=== PATIENT | male | born 1930 | race Two or more races ===

== ENCOUNTER 2017-07-02 16:44 | Inpatient (IN) | payer MEDICARE, BC ==
[~2017-07-02] VITALS: Ht 157.5 cm; Wt 75.7 kg
[~2017-07-02 16:44] MED LIST: DILAUDID1 MG/1 ML PO; LISINOPRIL2.5 MG ORAL
[2017-07-02 16:50] VITALS: BP 137/82
[2017-07-02 17:31] LABS: TROPONIN I < 0.30 ng/mL (<=0.30)
[2017-07-02 17:32] LABS: MEAN CORPUSCULAR HEMOGLOBIN 36.8 PG (27.0-31.0); MEAN CORPUSCULAR HGB CONC 36.4 G/DL (32.0-36.0); MEAN CORPUSCULAR VOLUME 101 FL (80-99); MEAN PLATELET VOLUME 9.9 FL (6.5-10.1); PLATELET COUNT 82 K/UL (150-450); RED BLOOD COUNT 3.57 M/UL (4.70-6.10); RED CELL DISTRIBUTION WIDTH 12.9 % (11.6-14.8); WHITE BLOOD COUNT 7.1 K/UL (4.8-10.8)
[2017-07-02 17:34] LABS: ALANINE AMINOTRANSFERASE 16 U/L (3-41); ALBUMIN/GLOBULIN RATIO 1.5 (1.0-2.7); ANION GAP 11 (5-15); ASPARTATE AMINO TRANSFERASE 31 U/L (5-40); CALCIUM 9.1 mg/dL (8.6-10.2); CARBON DIOXIDE 28 mEQ/L (20-30); CHLORIDE 102 mEQ/L (98-107); CREATININE 0.9 mg/dL (0.7-1.2); HEMOLYSIS 32; SODIUM 141 mEQ/L (135-145); TOTAL PROTEIN 6.7 g/dL (6.6-8.7)
[2017-07-02 17:45] LABS: CKMB 4.7 ng/mL (< 6.7)
[2017-07-02 18:37] VITALS: BP 126/63
[2017-07-02] MEDS ORDERED: HYDROmorphone 1mg/ml Carpuject IVP ONE (18:45)
--- NOTE | 2017-07-02 18:56 | Emergency Room Report ---
History of Present Illness General Chief Complaint: Chest Pain Source: Patient, EMS Present Illness HPI 86YOM BIBEMS for chest pain "all day." Thinks he "woke up with it." Right sided, sharp, non-radiating No assoc fever/chills, cough, SOB, abd pain, nausea Endorses pacer placed and "right heart valve replaced at [facility] last month" because he had CHF On ASA and Shady Went to PMD's office who sent him to ED Got 2x ASA by EMS today as well Still c/o pain Requesting IV dialudid for "chronic abd pain" - used to have dilaudid pump. Allergies: Coded Allergies: No Known Allergies (Unverified , 07/02/17) Patient History Past Medical History: CHF Past Surgical History: pacemaker, other - "heart valve replaced on right side" Pertinent Family History: none Social History: Denies: smoking, alcohol use, drug use Immunizations: UTD Reviewed Nursing Documentation: PMH: Agreed, PSxH: Agreed Nursing Documentation-PMH Past Medical History: No History, Except For Hx Cardiac Problems: Yes Hx Hypertension: Yes Review of Systems All Other Systems: negative except mentioned in HPI Physical Exam Vital Signs Date Time Temp Pulse Resp B/P (MAP) Pulse Ox O2 Delivery O2 Flow Rate FiO2 07/02/17 16:38 98.2 77 16 150/96 100 Room Air Sp02 EP Interpretation: reviewed, normal General Appearance: normal inspection, well appearing, no apparent distress, alert, GCS 15, non-toxic Head: normocephalic, atraumatic Eyes: bilateral eye PERRL, bilateral eye EOMI ENT: normal ENT inspection, hearing grossly normal, normal voice Neck: normal inspection, full range of motion, supple, no bony tend Respiratory: normal inspection, lungs clear, normal breath sounds, no respiratory distress, no retraction, no wheezing, other - No pocket infection at pacemaker site visualized or palpated, chest symmetrical, palpation of chest normal Cardiovascular #1: regular rate, rhythm, no edema Gastrointestinal: normal inspection, normal bowel sounds, non tender, soft, no guarding, no hernia Genitourinary: no CVA tenderness Musculoskeletal: normal inspection, back normal, normal range of motion, Yasmeen' s Sign negative Neurologic: normal inspection, alert, oriented x3, responsive, embedded nurse III-XII nml as tested, motor strength/tone normal, speech normal Psychiatric: normal inspection, judgement/insight normal, mood/affect normal Skin: normal inspection, normal color, no rash Lymphatic: normal inspection Medical Decision Making Medicare Attestation I Gilberto Pro MD hereby attest that the medical record entry for date of service, 07/02/17 accurately reflects signatures/notations that I made in my capacity as MD when I treated/diagnosed the above listed Medicare beneficiary. I attest that this information is true, accurate and complete to the best of my knowledge. I understand that any falsification, omission, or concealment of material fact may subject me to administrative, civil, or criminal liability. This patient warrants hospital admission for extreme of age and has a condition that cannot be treated as outpatient. Diagnostic Impression: Primary Impression: Chest pain Qualified Codes: R07.9 - Chest pain, unspecified ER Course 86 YOM with PMHx of CHF, recent pacer placed, valve replaced DDX: ACS vs. CHF vs. pneumonia vs. gastritis/GERD vs. pneumothorax PE on differential however at this time there are other more likely diagnoses. Plan: IV access, obtain labs including troponin, EKG, CXR ASA already given, pain control with nitro / morphine Tele admission to Dr Shipley at 7pm Chest pain admission * ER course: Pain was treated with dilaudid Labs unremarkable. Troponin 0 EKG reveals no acute STT changes. Atrial sensed, ventricular paced CXR: no acute cardiopulmonary disease. Pacer visualized Patient has remained on a monitor, HD stable, chest pain improved. Disposition: Patient requires admission for chest pain. EKG Diagnostic Results Rate: other - Atrial sensed, v-paced ST Segments: no acute changes ASA given to the pt in ED: No Rhythm Strip Diag. Results EP Interpretation: yes Rate: 83 Rhythm: NSR, other - Multiple PVCs Chest X-Ray Diagnostic Results Chest X-Ray Diagnostic Results : Chest X-Ray Ordered: Yes # of Views/Limited/Complete: 1 View Indication: Chest Pain EP Interpretation: Yes Interpretation: no consolidation, no pneumothorax, other - Cardiomegaly, pacemaker Interpreting ER Provider: Dr Gilberto Pro MD Last Vital Signs Date Time Temp Pulse Resp B/P (MAP) Pulse Ox O2 Delivery O2 Flow Rate FiO2 07/02/17 18:37 80 17 126/63 97 Room Air 07/02/17 16:50 97.8 Status: improved Disposition: ADMITTED INPATIENT Condition: Serious Referrals: NOT CHOSEN SARITA/,REFERRING (PCP) GILBERTO PRO M.D. Jul 02, 2017 18:56
[2017-07-02 19:02] LABS: ANISOCYTOSIS 1+; BAND NEUTROPHILS % (MANUAL) 2 % (0-8); EOSINOPHILS % (MANUAL) 3 % (0-3); LYMPHOCYTES % (MANUAL) 35 % (20-45); MACROCYTES 1+; NEUTROPHILS % (MANUAL) 54 % (45-75); TOTAL CELLS COUNTED 100
[2017-07-02 19:03] LABS: BASOPHILS % (MANUAL) 0 % (0-2); PLATELET ESTIMATE DECREASED; PLATELET MORPHOLOGY NORMAL
[2017-07-02] MEDS ORDERED: Diltiazem 25mg/5ml IV PRN (19:15)
[2017-07-02] MEDS ORDERED: Ketorolac 30mg Inj IV PRN (19:15)
[2017-07-02] MEDS ORDERED: Enalaprilat 2.5mg/2ml Inj IV PRN (19:15)
[2017-07-02] MEDS ORDERED: DuoNeb 0.5-3(2.5)mg/3ml neb HHN PRN (19:15)
[2017-07-02] MEDS ORDERED: Miralax 17gm pkt ORAL PRN (19:15)
[2017-07-02] MEDS ORDERED: Nitroglycerin Subl 0.4mg tab (Bottle Of 25) SL PRN (19:15)
[2017-07-02 19:27] VITALS: BP 126/65
[2017-07-02 20:00] VITALS: BP 133/74
[2017-07-02 20:54] LABS: TROPONIN I < 0.30 ng/mL (<=0.30)
[2017-07-02] MEDS ORDERED: Heparin 5000 units/ml inj SUBQ SCH (21:00)
[2017-07-02] MEDS: Morphine Sulfate 2mg/ml Inj IVP PRN (22:11)
[2017-07-03] VITALS (12 sets, daily range): BP systolic 73–124; BP diastolic 39–76
[2017-07-03] MEDS ORDERED: OXYCODONE-ACET1 EAC3 ORAL (00:02)
[2017-07-03] MEDS ORDERED: GABAPENTIN100 MG ORAL (00:02)
[2017-07-03] MEDS ORDERED: SYNTHROID50 MCG ORAL (00:02)
[2017-07-03] MEDS ORDERED: LACTULOSE10 GM/153 PO (00:02)
[2017-07-03] MEDS ORDERED: OMEPRAZOLE40 M1 ORAL (00:02)
[2017-07-03] MEDS ORDERED: MOVANTIK25 MG PO (00:02)
[2017-07-03] MEDS ORDERED: FLOMAX0.4 MG ORAL (00:02)
[2017-07-03] MEDS ORDERED: TRAMADOL HCL50 MG ORAL (00:02)
[2017-07-03] MEDS ORDERED: PRINIVIL10 MG ORAL (00:02)
[2017-07-03] MEDS ORDERED: ASPIR 8181 MG ORAL (00:02)
[2017-07-03] MEDS ORDERED: DOCUSATE SODIU100 M2 ORAL (00:02)
[2017-07-03] MEDS ORDERED: FINASTERIDE5 MG ORAL (00:02)
[2017-07-03] MEDS ORDERED: SIMVASTATIN40 MG ORAL (00:02)
[2017-07-03] MEDS ORDERED: IPRATROPIUM BRO15 ML NS (00:02)
[2017-07-03] MEDS ORDERED: LOPRESSOR25 M1 ORAL (00:02)
[2017-07-03 06:46] LABS: MEAN CORPUSCULAR HEMOGLOBIN 34.7 PG (27.0-31.0); MEAN CORPUSCULAR HGB CONC 33.5 G/DL (32.0-36.0); MEAN CORPUSCULAR VOLUME 103 FL (80-99); PLATELET COUNT 88 K/UL (150-450); RED BLOOD COUNT 3.66 M/UL (4.70-6.10); RED CELL DISTRIBUTION WIDTH 12.8 % (11.6-14.8); WHITE BLOOD COUNT 5.7 K/UL (4.8-10.8)
[2017-07-03 06:51] LABS: INR 1.1 (0.9-1.1); PROTHROMBIN TIME 11.2 SEC (9.30-11.50)
[2017-07-03 06:58] LABS: CHOLESTEROL 122 mg/dL (< 200); CRP QUANT < 0.3 mg/dL (< 0.5); HEMOLYSIS 8; LDL CHOLESTEROL (CALC.) 51 mg/dL (60-99)
[2017-07-03] MEDS ORDERED: traMADol 50mg tab ORAL PRN (07:00)
[2017-07-03] MEDS ORDERED: oxyCODONE HCL/Acetaminophen 5/325mg ORAL PRN (07:00)
[2017-07-03 07:50] LABS: TROPONIN I < 0.30 ng/mL (<=0.30)
[2017-07-03 08:14] LABS: EOSINOPHILS % (MANUAL) 4 % (0-3); LYMPHOCYTES % (MANUAL) 34 % (20-45); NEUTROPHILS % (MANUAL) 57 % (45-75); TOTAL CELLS COUNTED 100
[2017-07-03 08:15] LABS: BAND NEUTROPHILS % (MANUAL) 0 % (0-8); BASOPHILS % (MANUAL) 0 % (0-2); PLATELET ESTIMATE DECREASED; PLATELET MORPHOLOGY NORMAL
[2017-07-03 08:16] LABS: MACROCYTES 1+
[2017-07-03] MEDS: Morphine Sulfate 2mg/ml Inj IVP PRN ×2 (08:52→20:30)
[2017-07-03] MEDS: Aspirin Baby 81mg ORAL SCH ×2 (08:59→09:00)
[2017-07-03] MEDS ORDERED: Metoprolol 25mg tab ORAL SCH (09:00)
[2017-07-03] MEDS ORDERED: Lisinopril 10mg tab ORAL SCH (09:00)
[2017-07-03] MEDS: Tamsulosin 0.4mg cap ORAL SCH ×2 (09:00→18:11)
--- NOTE | 2017-07-03 09:49 | Cardiology Progress Note ---
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 thrombus on valve on anticoag chf chronic thrombocytopenia 77-109 evlautecd by tutu at [facility] 05/2017 contineu on antiplt an anitcoag chronic pain pudendal neuralgia abd pain constipation , chest pain nto cardiac ischmeic in orgin has had even previoulsy all trop neg as expected as no cad normal coroanries is on anticoagualtion to continue pain has resolved was supposed to be seen by gi his pmd is dr pruitt and he saw him yest gi was dr kerns [id number] Objective Last 24 Hour Vital Signs Date Time Temp Pulse Resp B/P (MAP) Pulse Ox O2 Delivery O2 Flow Rate FiO2 07/03/17 09:00 82 124/69 07/03/17 09:00 124/69 07/03/17 08:13 98.1 82 20 124/69 96 Room Air 07/03/17 04:00 97.0 72 20 112/56 98 Room Air 72 07/03/17 04:00 67 07/03/17 00:00 67 07/03/17 00:00 97.3 66 20 107/63 95 07/02/17 20:00 97.0 78 20 133/74 96 Room Air 07/02/17 19:45 97.9 79 20 126/65 98 Room Air 07/02/17 19:27 97.9 79 20 126/65 98 Room Air 07/02/17 18:37 80 17 126/63 97 Room Air 07/02/17 16:50 97.8 79 22 137/82 98 Room Air 07/02/17 16:50 79 22 Room Air 07/02/17 16:38 98.2 77 16 150/96 100 Room Air Laboratory Tests Test 07/02/17 17:05 07/02/17 20:15 07/03/17 06:15 White Blood Count 7.1 K/UL (4.8-10.8) 5.7 K/UL (4.8-10.8) Red Blood Count 3.57 M/UL (4.70-6.10) L 3.66 M/UL (4.70-6.10) L Hemoglobin 13.1 G/DL (14.2-18.0) L 12.7 G/DL (14.2-18.0) L Hematocrit 36.0 % (42.0-52.0) L 37.8 % (42.0-52.0) L Mean Corpuscular Volume 101 FL (80-99) H 103 FL (80-99) H Mean Corpuscular Hemoglobin 36.8 PG (27.0-31.0) H 34.7 PG (27.0-31.0) H Mean Corpuscular Hemoglobin Concent 36.4 G/DL (32.0-36.0) H 33.5 G/DL (32.0-36.0) Red Cell Distribution Width 12.9 % (11.6-14.8) 12.8 % (11.6-14.8) Platelet Count 82 K/UL (150-450) L 88 K/UL (150-450) L Mean Platelet Volume 9.9 FL (6.5-10.1) 9.0 FL (6.5-10.1) Neutrophils (%) (Auto) % (45.0-75.0) % (45.0-75.0) Lymphocytes (%) (Auto) % (20.0-45.0) % (20.0-45.0) Monocytes (%) (Auto) % (1.0-10.0) % (1.0-10.0) Eosinophils (%) (Auto) % (0.0-3.0) % (0.0-3.0) Basophils (%) (Auto) % (0.0-2.0) % (0.0-2.0) Differential Total Cells Counted 100 100 Neutrophils % (Manual) 54 % (45-75) 57 % (45-75) Lymphocytes % (Manual) 35 % (20-45) 34 % (20-45) Monocytes % (Manual) 6 % (1-10) 5 % (1-10) Eosinophils % (Manual) 3 % (0-3) 4 % (0-3) H Basophils % (Manual) 0 % (0-2) 0 % (0-2) Band Neutrophils 2 % (0-8) 0 % (0-8) Platelet Estimate Decreased L Decreased L Platelet Morphology Normal Normal Anisocytosis 1+ Macrocytosis 1+ 1+ Sodium Level 141 mEQ/L (135-145) Potassium Level 4.0 mEQ/L (3.4-4.9) Chloride Level 102 mEQ/L (98-107) Carbon Dioxide Level 28 mEQ/L (20-30) Anion Gap 11 (5-15) Blood Urea Nitrogen 23 mg/dL (7-23) Creatinine 0.9 mg/dL (0.7-1.2) Estimat Glomerular Filtration Rate mL/min (>60) Glucose Level 126 mg/dL (74-106) H Calcium Level 9.1 mg/dL (8.6-10.2) Total Bilirubin 0.3 mg/dL (0.0-1.2) Aspartate Amino Transf (AST/SGOT) 31 U/L (5-40) Alanine Aminotransferase (ALT/SGPT) 16 U/L (3-41) Alkaline Phosphatase 91 U/L (40-129) Total Creatine Kinase 87 U/L (38-174) Creatine Kinase MB 4.7 ng/mL (< 6.7) Creatine Kinase MB Relative Index 5.4 Troponin I < 0.30 ng/mL (<=0.30) < 0.30 ng/mL (<=0.30) < 0.30 ng/mL (<=0.30) Total Protein 6.7 g/dL (6.6-8.7) Albumin 4.1 g/dL (3.5-5.2) Globulin 2.6 g/dL Albumin/Globulin Ratio 1.5 (1.0-2.7) Prothrombin Time 11.2 SEC (9.30-11.50) Prothromb Time International Ratio 1.1 (0.9-1.1) Activated Partial Thromboplast Time 32 SEC (23-33) C-Reactive Protein, Quantitative < 0.3 mg/dL (< 0.5) Triglycerides Level 52 mg/dL (< 150) Cholesterol Level 122 mg/dL (< 200) LDL Cholesterol 51 mg/dL (60-99) L HDL Cholesterol 61 mg/dL (> 60) H Cholesterol/HDL Ratio 2.0 (3.3-4.4) L Thyroid Stimulating Hormone (TSH) 1.850 uIU/mL (0.300-4.500) RAE ELLIS Jul 03, 2017 09:49
--- NOTE | 2017-07-03 12:22 | Diagnostic Imaging Report ---
Indication: Chest pain Comparison: None A single view chest radiograph was obtained. Findings: Heart is enlarged. There is a pacemaker on the left. Aorta is calcified. There is paravertebral prominence at the lower thoracic spine. Suggest further evaluation. This could be hiatal hernia. Other possibilities are not excluded. No obvious infiltrate or pulmonary edema identified. The bones are osteopenic. Cervical fusion hardware noted. Impression: Apparent paravertebral prominence lower aspect of the thoracic spine. Consider CT for further evaluation. No acute cardiopulmonary disease identified
--- NOTE | 2017-07-03 12:39 | GI Initial Consult Note ---
AlfredaJelena Flaherty N.P. 07/03/17 1239: History of Present Illness General Date patient seen: Jul 03, 2017 Time patient seen: 11:00 Reason for Hospitalization: Chest Pain Referring physician: SHELLY BROCK Reason for Consultation: ABDOMINAL PAIN Present Illness HPI 86YOM BIBEMS for chest pain "all day." Thinks he "woke up with it." Right sided, sharp, non-radiating No assoc fever/chills, cough, SOB, abd pain, nausea Endorses pacer placed and "right heart valve replaced at [facility] last month" because he had CHF On ASA and Shady Went to PMD's office who sent him to ED Got 2x ASA by EMS today as well Still c/o pain Requesting IV dialudid for "chronic abd pain" - used to have dilaudid pump. GI Consult. HPI as noted above. GI consulted for abdominal pain. Patient seen on floor, awake A&Ox4 NAD with no active s/sx of N/V/D. Patient c/o of generalized pain directed to his chest and abdomen. In addition, patient c/o of constipation, stated his last BM was yesterday. Per patient, last endoscopy and/or colonoscopy was 5+ years ago. He presents today with mild anemia and negative troponin levels. Home Meds Reported Medications Tramadol Hcl* (ULTRAM*) 50 Mg Tablet, 50 MG ORAL Q4HR Y for For Pain, #30 TAB 0 Refills 07/03/17 Oxycodone Hcl/Acetaminophen 5-325* (OXYCODONE-ACETAMINOPHEN 5-325*) 1 Each Tablet, 1 TAB ORAL Q4H Y for For Pain, TAB 0 Refills 07/03/17 Tamsulosin HCl (Flomax) 0.4 Mg Cap.er.24h, 0.4 MG ORAL BID, CAP 07/03/17 Simvastatin (ZOCOR) 40 Mg Tablet, 40 MG ORAL BEDTIME, TAB 07/03/17 Omeprazole (OMEPRAZOLE) 40 Mg Capsule.dr, 40 MG ORAL BEFORE LUNCH, CAP 07/03/17 Metoprolol Tartrate (Metoprolol Tartrate) 25 Mg Tablet, 25 MG ORAL EVERY 12 HOURS, TAB 07/03/17 Lisinopril* (PRINIVIL*) 10 Mg Tablet, 10 MG ORAL DAILY, TAB 07/03/17 Levothyroxine Sodium (Synthroid) 50 Mcg Tablet, 50 MCG ORAL ACBREAKFAST, TAB Take in the morning on an empty stomach, at least 30 minutes beforefood. 07/03/17 Aspirin* (ASPIR 81*) 81 Mg Tablet.dr, 81 MG ORAL QHS, TAB 07/03/17 Naloxegol Oxalate (Movantik) 25 Mg Tablet, 25 MG PO DAILY, TAB 07/03/17 Lactulose (LACTULOSE) 10 Gm/15 Ml Solution, 10 GM PO QID 07/03/17 Ipratropium [place] (IPRATROPIUM BROMIDE) 15 Ml [place], 0.03 % NS DAILY, #1 SPRAY 07/03/17 Gabapentin* (GABAPENTIN*) 100 Mg Capsule, 100 MG ORAL QHS, CAP 07/03/17 Finasteride (FINASTERIDE) 5 Mg Tablet, 5 MG ORAL DAILY, #30 TAB 0 Refills 07/03/17 Docusate Sodium (DOCUSATE SODIUM) 100 Mg Tablet, 100 MG ORAL QID, #60 TAB 0 Refills 07/03/17 Hydromorphone Hcl (DILAUDID) 1 Mg/1 Ml Liquid, PO, ML 07/02/17 Lisinopril* (LISINOPRIL*) 2.5 Mg Tablet, ORAL DAILY, TAB 0 Refills 07/02/17 Med list reviewed/reconciled: Yes Allergies: Coded Allergies: No Known Allergies (Unverified , 07/02/17) Patient History History Provided By: Patient, Medical Record PMH Narrative Past Medical History: CHF Past Surgical History: pacemaker, other - "heart valve replaced on right side" Pertinent Family History: none Social History: Denies: smoking, alcohol use, drug use Immunizations: UTD Reviewed Nursing Documentation: PMH: Agreed, PSxH: Agreed Nursing Documentation-PM Past Medical History: No History, Except For Hx Cardiac Problems: Yes Hx Hypertension: Yes Social History: Denies: smoking, alcohol use, drug use, other Review of Systems All Other Systems: negative except mentioned in HPI Physical Exam Vital Signs Date Time Temp Pulse Resp B/P (MAP) Pulse Ox O2 Delivery O2 Flow Rate FiO2 07/02/17 16:38 98.2 77 16 150/96 100 Room Air 07/03/17 08:04 21 Sp02 EP Interpretation: reviewed Labs Laboratory Tests Test 07/02/17 17:05 07/02/17 20:15 07/03/17 06:15 White Blood Count 7.1 K/UL (4.8-10.8) 5.7 K/UL (4.8-10.8) Red Blood Count 3.57 M/UL (4.70-6.10) L 3.66 M/UL (4.70-6.10) L Hemoglobin 13.1 G/DL (14.2-18.0) L 12.7 G/DL (14.2-18.0) L Hematocrit 36.0 % (42.0-52.0) L 37.8 % (42.0-52.0) L Mean Corpuscular Volume 101 FL (80-99) H 103 FL (80-99) H Mean Corpuscular Hemoglobin 36.8 PG (27.0-31.0) H 34.7 PG (27.0-31.0) H Mean Corpuscular Hemoglobin Concent 36.4 G/DL (32.0-36.0) H 33.5 G/DL (32.0-36.0) Red Cell Distribution Width 12.9 % (11.6-14.8) 12.8 % (11.6-14.8) Platelet Count 82 K/UL (150-450) L 88 K/UL (150-450) L Mean Platelet Volume 9.9 FL (6.5-10.1) 9.0 FL (6.5-10.1) Neutrophils (%) (Auto) % (45.0-75.0) % (45.0-75.0) Lymphocytes (%) (Auto) % (20.0-45.0) % (20.0-45.0) Monocytes (%) (Auto) % (1.0-10.0) % (1.0-10.0) Eosinophils (%) (Auto) % (0.0-3.0) % (0.0-3.0) Basophils (%) (Auto) % (0.0-2.0) % (0.0-2.0) Differential Total Cells Counted 100 100 Neutrophils % (Manual) 54 % (45-75) 57 % (45-75) Lymphocytes % (Manual) 35 % (20-45) 34 % (20-45) Monocytes % (Manual) 6 % (1-10) 5 % (1-10) Eosinophils % (Manual) 3 % (0-3) 4 % (0-3) H Basophils % (Manual) 0 % (0-2) 0 % (0-2) Band Neutrophils 2 % (0-8) 0 % (0-8) Platelet Estimate Decreased L Decreased L Platelet Morphology Normal Normal Anisocytosis 1+ Macrocytosis 1+ 1+ Sodium Level 141 mEQ/L (135-145) Potassium Level 4.0 mEQ/L (3.4-4.9) Chloride Level 102 mEQ/L (98-107) Carbon Dioxide Level 28 mEQ/L (20-30) Anion Gap 11 (5-15) Blood Urea Nitrogen 23 mg/dL (7-23) Creatinine 0.9 mg/dL (0.7-1.2) Estimat Glomerular Filtration Rate mL/min (>60) Glucose Level 126 mg/dL (74-106) H Calcium Level 9.1 mg/dL (8.6-10.2) Total Bilirubin 0.3 mg/dL (0.0-1.2) Aspartate Amino Transf (AST/SGOT) 31 U/L (5-40) Alanine Aminotransferase (ALT/SGPT) 16 U/L (3-41) Alkaline Phosphatase 91 U/L (40-129) Total Creatine Kinase 87 U/L (38-174) Creatine Kinase MB 4.7 ng/mL (< 6.7) Creatine Kinase MB Relative Index 5.4 Troponin I < 0.30 ng/mL (<=0.30) < 0.30 ng/mL (<=0.30) < 0.30 ng/mL (<=0.30) Total Protein 6.7 g/dL (6.6-8.7) Albumin 4.1 g/dL (3.5-5.2) Globulin 2.6 g/dL Albumin/Globulin Ratio 1.5 (1.0-2.7) Prothrombin Time 11.2 SEC (9.30-11.50) Prothromb Time International Ratio 1.1 (0.9-1.1) Activated Partial Thromboplast Time 32 SEC (23-33) C-Reactive Protein, Quantitative < 0.3 mg/dL (< 0.5) Triglycerides Level 52 mg/dL (< 150) Cholesterol Level 122 mg/dL (< 200) LDL Cholesterol 51 mg/dL (60-99) L HDL Cholesterol 61 mg/dL (> 60) H Cholesterol/HDL Ratio 2.0 (3.3-4.4) L Thyroid Stimulating Hormone (TSH) 1.850 uIU/mL (0.300-4.500) General Appearance: well appearing, no apparent distress, alert Head: normocephalic EENT: PERRL/EOMI, normal ENT inspection Neck: supple Respiratory: normal breath sounds, no respiratory distress Cardiovascular: normal rate Gastrointestinal: normal inspection, non tender, soft, normal bowel sounds Genitourinary: normal inspection, no CVA tenderness, no vertebral tenderness Musculoskeletal: normal inspection, back normal Neurologic: normal inspection, alert, oriented x3, responsive Psychiatric: normal inspection, judgement/insight normal Skin: normal inspection, normal color, no rash, warm/dry Lymphatic: normal inspection, no adenopathy Current Medications Current Medications Medications (Trade) Dose Ordered Sig/Michael Route PRN Reason Start Time Stop Time Status Last Admin Dose Admin Acetaminophen (Tylenol) 650 mg Q4H PRN ORAL FEVER 07/02/17 19:15 08/01/17 19:14 Albuterol/ Ipratropium (DuoNeb 0.5-3(2.5)mg/3ml) 3 ml Q4H PRN HHN Shortness of Breath 07/02/17 19:15 07/07/17 19:14 Aspirin (ASA) 162 mg DAILY ORAL 07/03/17 09:00 08/02/17 08:59 Diltiazem HCl (Cardizem) 10 mg Q1H PRN IV heart rate more than 120, 07/02/17 19:15 08/01/17 19:14 Enalaprilat (Vasotec) 2.5 mg Q6H PRN IV sbp more than 160 07/02/17 19:15 08/01/17 19:14 Finasteride (Proscar) 5 mg DAILY ORAL 07/03/17 09:00 08/02/17 08:59 07/03/17 08:59 Levothyroxine Sodium (Synthroid) 50 mcg ACBREAKFAST ORAL 07/04/17 06:30 08/03/17 06:29 Lisinopril (Zestril) 10 mg DAILY ORAL 07/03/17 09:00 08/02/17 08:59 07/03/17 09:00 Metoprolol Tartrate (Lopressor) 25 mg EVERY 12 HOURS ORAL 07/03/17 09:00 08/02/17 08:59 07/03/17 09:00 Morphine Sulfate (Morphine Sulfate) 2 mg Q4H PRN IVP severe Pain (Pain Scale 7-10) 07/02/17 19:15 07/09/17 19:14 07/03/17 08:52 Nitroglycerin (Ntg) 0.4 mg Q5M PRN SL Prn Chest Pain 07/02/17 19:15 08/01/17 19:14 Ondansetron HCl (Zofran) 4 mg Q6H PRN IVP Nausea & Vomiting 07/02/17 19:15 08/01/17 19:14 07/03/17 09:06 Oxycodone/ Acetaminophen (Percocet 5-325) 1 tab Q4H PRN ORAL for moderate pain 07/03/17 07:00 07/10/17 06:59 Pantoprazole (Protonix) 40 mg DAILY ORAL 07/03/17 09:00 08/02/17 08:59 07/03/17 08:59 Polyethylene Glycol (Miralax) 17 gm DAILYPRN PRN ORAL Constipation 07/02/17 19:15 08/01/17 19:14 07/02/17 22:09 Tamsulosin HCl (Flomax) 0.4 mg BID ORAL 07/03/17 09:00 08/02/17 08:59 07/03/17 09:00 Temazepam (Restoril) 15 mg HSPRN PRN ORAL Insomnia 07/02/17 19:15 07/09/17 19:14 Tramadol HCl (Ultram) 50 mg Q4HR PRN ORAL for mild pain 07/03/17 07:00 07/10/17 06:59 GI: Plan Problems: (1) Anemia (2) Constipation Plan symptomatic treatment given advanced age >> pt refused any GI procedures macrocytic, hyperchromic anemia >> ordered B12/folate levels OB stool r/o GI bleed bowel regime >> colace + miralax, add lactulose if necessary monitor H&H, prn transfusions electrolyte replacement ppi fu labs Discussed with Dr. Butler. Thank you for referring this patient, we will follow. LONNY BUTLER 07/04/17 0637: History of Present Illness General Reason for Hospitalization: Chest Pain Present Illness Home Meds Reported Medications Tramadol Hcl* (ULTRAM*) 50 Mg Tablet, 50 MG ORAL Q4HR Y for For Pain, #30 TAB 0 Refills 07/03/17 Oxycodone Hcl/Acetaminophen 5-325* (OXYCODONE-ACETAMINOPHEN 5-325*) 1 Each Tablet, 1 TAB ORAL Q4H Y for For Pain, TAB 0 Refills 07/03/17 Tamsulosin HCl (Flomax) 0.4 Mg Cap.er.24h, 0.4 MG ORAL BID, CAP 07/03/17 Simvastatin (ZOCOR) 40 Mg Tablet, 40 MG ORAL BEDTIME, TAB 07/03/17 Omeprazole (OMEPRAZOLE) 40 Mg Capsule.dr, 40 MG ORAL BEFORE LUNCH, CAP 07/03/17 Metoprolol Tartrate (Metoprolol Tartrate) 25 Mg Tablet, 25 MG ORAL EVERY 12 HOURS, TAB 07/03/17 Lisinopril* (PRINIVIL*) 10 Mg Tablet, 10 MG ORAL DAILY, TAB 07/03/17 Levothyroxine Sodium (Synthroid) 50 Mcg Tablet, 50 MCG ORAL ACBREAKFAST, TAB Take in the morning on an empty stomach, at least 30 minutes beforefood. 07/03/17 Aspirin* (ASPIR 81*) 81 Mg Tablet.dr, 81 MG ORAL QHS, TAB 07/03/17 Naloxegol Oxalate (Movantik) 25 Mg Tablet, 25 MG PO DAILY, TAB 07/03/17 Lactulose (LACTULOSE) 10 Gm/15 Ml Solution, 10 GM PO QID 07/03/17 Ipratropium [place] (IPRATROPIUM BROMIDE) 15 Ml [place], 0.03 % NS DAILY, #1 SPRAY 07/03/17 Gabapentin* (GABAPENTIN*) 100 Mg Capsule, 100 MG ORAL QHS, CAP 07/03/17 Finasteride (FINASTERIDE) 5 Mg Tablet, 5 MG ORAL DAILY, #30 TAB 0 Refills 07/03/17 Docusate Sodium (DOCUSATE SODIUM) 100 Mg Tablet, 100 MG ORAL QID, #60 TAB 0 Refills 07/03/17 Hydromorphone Hcl (DILAUDID) 1 Mg/1 Ml Liquid, PO, ML 07/02/17 Lisinopril* (LISINOPRIL*) 2.5 Mg Tablet, ORAL DAILY, TAB 0 Refills 07/02/17 Allergies: Coded Allergies: No Known Allergies (Unverified , 07/02/17) GI: Plan Plan The patient was seen and examined at bedside and all new and available data was reviewed in the patients chart. I agree with the above findings, impression and plan. (Patient seen earlier today. Signature stamp does not reflect patient encounter time.). -Lonny GantB[facility] Reynold N.PZoey Jul 03, 2017 12:39 LONNY BUTLER Jul 04, 2017 06:37
[2017-07-03] MEDS: Docusate 100mg cap ORAL SCH ×2 (13:36→18:11)
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
--- NOTE | 2017-07-03 13:42 | Cardiology Report ---
APPROVED REPORT EXAM: Two-dimensional and M-mode echocardiogram with Doppler and color Doppler. INDICATION Left ventricular function M-Mode DIMENSIONS IVSd0.8 (0.7-1.1cm)Left Atrium (MM)5.4 (1.6-4.0cm) LVDd5.1 (3.5-5.6cm)Aortic Root2.4 (2.0-3.7cm) PWd0.7 (0.7-1.1cm)Aortic Cusp Exc.1.4 (1.5-2.0cm) LVDs4.5 (2.5-4.0cm) PWs1.0 cm Technically difficult study due to poor acoustic windows. Mild left ventricular enlargement by 2D. Global left ventricular hypokinesis Left ventricular ejection fraction estimated to be 30-35%. No evidence of left ventricular hypertrophy. No evidence of pericardial fat or effusion. Right cardiac chamber sizes are within normal limits. Mild left atrial enlargement by 2D. An aortic valve prosthesis is seen and appears to open appropriately. Thickened mitral valve leaflets with normal excursion. Mitral annulus and aortic root calcification. Pulmonic valve is well visualized. Normal tricuspid valve structure. IVC is normal in size with physiologic collapse. Probable pacemaker wire present in the right side chambers. A color flow and spectral Doppler study was performed and revealed: No aortic regurgitation. Peak aortic valve gradient of 15mmHg and a mean of 8mmHg. Aortic valve area 1.8 cm2 calculated by continuity equation. Mild mitral regurgitation. Left ventricular diastolic dysfunction mild degree Mild tricuspid regurgitation. Tricuspid systolic velocities suggests peak right ventricular systolic pressure of 49 mmHg Consistent with moderate pulmonary hypertension. Pulmonic regurgitation present.
[2017-07-03] MEDS ORDERED: NS 200 ML IVPB ONE (14:00)
[2017-07-03] MEDS ORDERED: NS 100 ML IVPB ONE (14:30)
--- NOTE | 2017-07-03 15:35 | Cardiology Report ---
APPROVED REPORT EKG Measurement Heart [id number] Abnormal ECG
[2017-07-03] MEDS: Metoprolol 25mg tab ORAL SCH (21:48)
[2017-07-03] MEDS: Miralax 17gm pkt ORAL SCH (21:49)
[2017-07-04] VITALS: BP 111/61
[2017-07-04] MEDS: Morphine Sulfate 2mg/ml Inj IVP PRN ×2 (01:46→08:40)
[2017-07-04 04:00] VITALS: BP 131/57
[2017-07-04 08:00] VITALS: BP 108/60
[2017-07-04 08:28] LABS: MEAN CORPUSCULAR HEMOGLOBIN 34.3 PG (27.0-31.0); MEAN CORPUSCULAR HGB CONC 32.5 G/DL (32.0-36.0); MEAN CORPUSCULAR VOLUME 106 FL (80-99); MEAN PLATELET VOLUME 8.4 FL (6.5-10.1); PLATELET COUNT 96 K/UL (150-450); RED BLOOD COUNT 4.32 M/UL (4.70-6.10); RED CELL DISTRIBUTION WIDTH 12.9 % (11.6-14.8); WHITE BLOOD COUNT 6.9 K/UL (4.8-10.8)
[2017-07-04] MEDS: Tamsulosin 0.4mg cap ORAL SCH ×2 (08:40→18:22)
[2017-07-04 08:42] LABS: ANION GAP 9 (5-15); CALCIUM 9.8 mg/dL (8.6-10.2); CARBON DIOXIDE 32 mEQ/L (20-30); CHLORIDE 99 mEQ/L (98-107); HEMOLYSIS 8; MAGNESIUM 1.8 mg/dL (1.7-2.5); PHOSPHORUS 4.2 mg/dL (2.5-4.8); POTASSIUM 4.2 mEQ/L (3.4-4.9); SODIUM 140 mEQ/L (135-145)
[2017-07-04] MEDS: Metoprolol 25mg tab ORAL SCH ×2 (08:54→22:24)
[2017-07-04] MEDS: Aspirin Baby 81mg ORAL SCH (09:00)
[2017-07-04] MEDS: Docusate 100mg cap ORAL SCH ×3 (09:00→18:23)
--- NOTE | 2017-07-04 09:00 | Consultation ---
DATE OF CONSULTATION: 07/03/2017 CARDIOLOGY CONSULTATION CONSULTING PHYSICIAN: Bobby Peña M.D. REFERRING PHYSICIAN: Tammy Shipley M.D. REASON FOR REFERRAL: Chest pain. HISTORY OF PRESENT ILLNESS: This is an elderly 86-year-old gentleman with history of significant aortic stenosis. His data was reviewed from [facility] where he recently had several hospitalizations and appears that he has a history of severe aortic stenosis. He underwent a transaortic valve replacement by Dr. Lopez recently and apparently has done well prior to that procedure, he had a cardiac catheterization. Review of the catheterization showed no significant coronary disease at that time. He basically presented to inclusion intern's office because of constipation and abdominal pain and was told that he needs Movantik, which is relatively expensive for him to purchase. Nevertheless on the drive back home, he noted that he was having some pain in the left side of the chest and he therefore called Dr. Gudino, who evaluated the patient and recommended the patient be taken to the emergency room. Paramedics were summoned and the patient was brought to [facility] as [facility] was closed to admission and he has been admitted here to the hospital for further evaluation. His chest pain is something he has had before the procedure as well and he has had evaluation by his regular coin machine collector at [place] previously that checked him out, he says completely and was told that everything was fine and of course, he had a cardiac catheterization with Dr. Lopez as well. He does not have dyspnea on exertion. There is no PND. No orthopnea. No dizziness on standing. No heart pounding or palpitations. He does have a history of defibrillator placement previously. PAST MEDICAL HISTORY: Positive for history of cardiac catheterization that was performed on 03/26/[address] Claudia Gayle at [facility] that showed no significant coronary disease at that time. He has subsequently undergone as mentioned a 21 mm FLOYD 3 transcatheter aortic valve replacement, this was done on 03/28/2017. His other medical problems include history of cholecystitis, history of congestive heart failure secondary to systolic dysfunction, history of hypertension, back pain, urinary tract infection, nonischemic cardiomyopathy, left bundle-branch conduction defect with bi-v pacemaker implantation. He has had history of chest pains and he has a history of chronic pain. Prior echocardiography has shown a possible formation of the thrombus on the valve and he was started on anticoagulation by Dr. Lopez. He was seen by pain management for his chronic pain. 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 He has also thrombocytopenia, biventricular pacemaker was placed and the patient was eventually started on Xarelto. He has got benign prostatic hypertrophy and opiate dependence in remission. He has had prior intrathecal pump complicated by hyperalgesia status post inpatient detox in July of 2013. He also has sleep apnea and thyroid problems. ALLERGIES: He has no known drug allergies. SOCIAL HISTORY: He does not smoke or drink alcoholic beverages at the present time. 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 REVIEW OF SYSTEMS: Gastrointestinal: Positive for constipation and abdominal pain, which is chronic in origin. Genitourinary: He has had some problems with urination for which he was hospitalized and evaluated at [facility] emergency room, maybe two to three weeks ago he says. Constitutional: Negative. Neurologic: Just generalized weakness. PHYSICAL EXAMINATION: GENERAL: Shows to be elderly gentleman, in no respiratory distress, although he intermittently indicated he has had severe abdominal pain and acts as if he is crying. VITAL SIGNS: Blood pressure 124/69, saturation 96% to 98% on room air, heart rate of 82, and temperature of 98.1 degrees. NECK: Supple. There is no jugular venous distention noted. LUNGS: Appear to be clear to auscultation and percussion. CARDIAC: S1 is normal. S2 is normal. Regular rate and rhythm. No heaves, thrills, or gallops noted. ABDOMEN: Soft. No guarding or rigidity. There is some mild tenderness to palpation. EXTREMITIES: There is no clubbing, cyanosis, nor edema. NEUROLOGIC: He is awake, alert, responsive, and in no apparent respiratory distress. LABORATORY DATA: The three sets of cardiac enzymes are negative. His CRP is less than 0.3. His total cholesterol 122 with HDL of 61 and LDL of 51. His sodium 141, potassium 4.0, chloride 102, bicarb 28, BUN 22, creatinine 0.9, and glucose of 126. Liver function tests are normal. His white count is 5.7, hemoglobin 12.7, and platelet count of 88,000. In direct comparison to his prior levels, his last CBC had shown a platelet count of 102,000, but it has ranged between 74 to 109. ASSESSMENT: 1. Chest pain with normal coronary arteries by cath in March of 2017. 2. Left ventricular systolic dysfunction. 3. Left bundle-branch conduction defect. 4. Status post biventricular pacemaker implantation. 5. Aortic stenosis status post transcatheter aortic valve replacement with questionable thrombus on the valve, on anticoagulation. 6. Chronic congestive heart failure. 7. Thrombocytopenia, baseline 77 to 109 as of May 2017 with continued anticoagulation antiplatelets. 8. Chronic pain syndrome. 9. Pudendal neuralgia. 10. Abdominal pain. 11. Constipation. PLAN: Dr. Shipley, this patient was seen in cardiac consultation. The chest pains are not cardiac and ischemic in origin. He has had this chest pain before the TAVR. He indicates that he has had several workups including one with his own coin machine collector and one with Dr. Lopez, which I have reviewed. All troponins are negative as expected since he has no coronary disease, anticoagulation to be continued and antiplatelet to be continued. The pain has resolved so far. He was supposed to be seen by gastrointestinal because of his abdominal pain. His primary care physician is Dr. Gudino, who he saw yesterday in the office. Gastrointestinal that he was seen on previous occasion was Dr. De Jesus, just in case needs referrals. Dr. Shipley, thank you for allowing me to participate in the care of this patient. Bobby Peña M.D. DR: MARIE JOB#: [id number] CC: FRANKI
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
[2017-07-04 09:13] LABS: TROPONIN I < 0.30 ng/mL (<=0.30)
[2017-07-04 09:27] LABS: BAND NEUTROPHILS % (MANUAL) 0 % (0-8); BASOPHILS % (MANUAL) 0 % (0-2); EOSINOPHILS % (MANUAL) 7 % (0-3); LYMPHOCYTES % (MANUAL) 40 % (20-45); MACROCYTES 1+; NEUTROPHILS % (MANUAL) 43 % (45-75); PLATELET ESTIMATE DECREASED; PLATELET MORPHOLOGY NORMAL; TOTAL CELLS COUNTED 100
--- NOTE | 2017-07-04 10:03 | GI Progress Note ---
Assessment/Plan Problems: (1) Constipation ICD Codes: K59.00 - Constipation, unspecified SNOMED: 58353119 (2) Anemia ICD Codes: D64.9 - Anemia, unspecified SNOMED: 676136681 (3) Chronic abdominal pain ICD Codes: R10.9 - Unspecified abdominal pain; G89.29 - Other chronic pain SNOMED: 038577721 (4) Pacemaker ICD Codes: Z95.0 - Presence of cardiac pacemaker SNOMED: 216599639, 499792475 Status: stable Status Narrative Discussed with Dr. Jiang. Assessment/Plan symptomatic treatment >> pt refused any GI procedures macrocytic, hyperchromic anemia >> fu B12/folate fu OB stool r/o GI bleed bowel regime >> colace + miralax, add lactulose if necessary monitor H&H, prn transfusions IV hydration cardiac diet ppi fu labs The patient was seen and examined at bedside and all new and available data was reviewed in the patients chart. I agree with the above findings, impression and plan. (Patient seen earlier today. Signature stamp does not reflect patient encounter time.). -Lonny Jiang MD Subjective Gastrointestinal/Abdominal: Reports: no symptoms Objective Last 24 Hour Vital Signs Date Time Temp Pulse Resp B/P (MAP) Pulse Ox O2 Delivery O2 Flow Rate FiO2 07/04/17 08:54 75 111/61 07/04/17 08:00 97.7 71 20 108/60 97 Room Air 07/04/17 04:00 60 07/04/17 04:00 97.6 82 18 131/57 98 Room Air 07/04/17 00:00 96.9 75 18 111/61 92 Room Air 07/04/17 00:00 60 07/03/17 21:48 68 122/72 07/03/17 20:00 76 07/03/17 20:00 97.0 72 18 119/74 98 Room Air 07/03/17 19:30 64 20 Room Air 21 07/03/17 16:00 70 07/03/17 15:39 98.3 62 20 88/49 96 Room Air 07/03/17 15:30 68 101/63 07/03/17 14:27 85/47 07/03/17 13:50 65 73/44 07/03/17 13:45 68 80/45 07/03/17 13:30 63 78/39 07/03/17 12:05 98.0 66 20 99/76 98 Room Air 07/03/17 12:00 69 07/03/17 11:36 97.8 69 20 93/50 95 Room Air Intake and Output 07/04/17 07/05/17 19:00 07:00 Intake Total 120 ml Balance 120 ml Intake Oral 120 ml Laboratory Tests Test 07/04/17 07:50 White Blood Count 6.9 K/UL (4.8-10.8) Red Blood Count 4.32 M/UL (4.70-6.10) L Hemoglobin 14.8 G/DL (14.2-18.0) Hematocrit 45.6 % (42.0-52.0) Mean Corpuscular Volume 106 FL (80-99) H Mean Corpuscular Hemoglobin 34.3 PG (27.0-31.0) H Mean Corpuscular Hemoglobin Concent 32.5 G/DL (32.0-36.0) Red Cell Distribution Width 12.9 % (11.6-14.8) Platelet Count 96 K/UL (150-450) L Mean Platelet Volume 8.4 FL (6.5-10.1) Neutrophils (%) (Auto) % (45.0-75.0) Lymphocytes (%) (Auto) % (20.0-45.0) Monocytes (%) (Auto) % (1.0-10.0) Eosinophils (%) (Auto) % (0.0-3.0) Basophils (%) (Auto) % (0.0-2.0) Differential Total Cells Counted 100 Neutrophils % (Manual) 43 % (45-75) L Lymphocytes % (Manual) 40 % (20-45) Monocytes % (Manual) 10 % (1-10) Eosinophils % (Manual) 7 % (0-3) H Basophils % (Manual) 0 % (0-2) Band Neutrophils 0 % (0-8) Platelet Estimate Decreased L Platelet Morphology Normal Macrocytosis 1+ Sodium Level 140 mEQ/L (135-145) Potassium Level 4.2 mEQ/L (3.4-4.9) Chloride Level 99 mEQ/L (98-107) Carbon Dioxide Level 32 mEQ/L (20-30) H Anion Gap 9 (5-15) Blood Urea Nitrogen 16 mg/dL (7-23) Creatinine 1.0 mg/dL (0.7-1.2) Estimat Glomerular Filtration Rate mL/min (>60) Glucose Level 140 mg/dL (74-106) H Calcium Level 9.8 mg/dL (8.6-10.2) Phosphorus Level 4.2 mg/dL (2.5-4.8) Magnesium Level 1.8 mg/dL (1.7-2.5) Troponin I < 0.30 ng/mL (<=0.30) Vitamin B12 Level 420 pg/mL (211-946) Folate Pending Height (Feet): 5 Height (Inches): 2.00 Weight (Pounds): 167 General Appearance: no apparent distress, alert Cardiovascular: normal rate Respiratory/Chest: normal breath sounds, no respiratory distress Abdominal Exam: normal bowel sounds, non tender, soft Genitourinary/Rectal: normal rectal exam Jelena Gant N.P. Jul 04, 2017 10:03 LONNY JIANG Jul 11, 2017 11:13
[2017-07-04] MEDS ORDERED: Lactulose 20gm/30ml UDC ORAL PRN (10:15)
[2017-07-04 12:00] VITALS: BP 118/75
--- NOTE | 2017-07-04 12:24 | Pulmonology Progress Note ---
Assessment/Plan Problems: (1) Intractable back pain (2) Chest pain (3) Chronic abdominal pain (4) CAD (coronary artery disease) (5) Pacemaker Assessment/Plan add methadone pain specialist pt/ot GI v/u cardiology input appreciated. Subjective ROS Limited/Unobtainable: No Interval Events: still lots of pain, wants pain specialist and coxycodone without tylenol Allergies: Coded Allergies: No Known Allergies (Unverified , 07/02/17) Objective Last 24 Hour Vital Signs Date Time Temp Pulse Resp B/P (MAP) Pulse Ox O2 Delivery O2 Flow Rate FiO2 07/04/17 10:41 61 20 Room Air 07/04/17 09:10 97.7 07/04/17 08:54 75 111/61 07/04/17 08:00 97.7 71 20 108/60 97 Room Air 07/04/17 04:00 60 07/04/17 04:00 97.6 82 18 131/57 98 Room Air 07/04/17 00:00 96.9 75 18 111/61 92 Room Air 07/04/17 00:00 60 07/03/17 21:48 68 122/72 07/03/17 20:00 76 07/03/17 20:00 97.0 72 18 119/74 98 Room Air 07/03/17 19:30 64 20 Room Air 21 07/03/17 16:00 70 07/03/17 15:39 98.3 62 20 88/49 96 Room Air 07/03/17 15:30 68 101/63 07/03/17 14:27 85/47 07/03/17 13:50 65 73/44 07/03/17 13:45 68 80/45 07/03/17 13:30 63 78/39 Intake and Output 07/04/17 07/05/17 19:00 07:00 Intake Total 120 ml Balance 120 ml Intake Oral 120 ml General Appearance: WD/WN HEENT: normocephalic, atraumatic Respiratory/Chest: chest wall non-tender, lungs clear, normal breath sounds Cardiovascular: normal peripheral pulses, normal rate Abdomen: normal bowel sounds, soft, non tender Genitourinary: normal external genitalia Extremities: no clubbing Skin: no rash, no lesions Laboratory Tests 07/04/17 07:50: White Blood Count 6.9, Red Blood Count 4.32L, Hemoglobin 14.8, Hematocrit 45.6, Mean Corpuscular Volume 106H, Mean Corpuscular Hemoglobin 34.3H, Mean Corpuscular Hemoglobin Concent 32.5, Red Cell Distribution Width 12.9, Platelet Count 96L, Mean Platelet Volume 8.4, Neutrophils (%) (Auto) , Lymphocytes (%) ( Auto) , Monocytes (%) (Auto) , Eosinophils (%) (Auto) , Basophils (%) (Auto) , Differential Total Cells Counted 100, Neutrophils % (Manual) 43L, Lymphocytes % (Manual) 40, Monocytes % (Manual) 10, Eosinophils % (Manual) 7H, Basophils % ( Manual) 0, Band Neutrophils 0, Platelet Estimate DecreasedL, Platelet Morphology Normal, Macrocytosis 1+, Sodium Level 140, Potassium Level 4.2, Chloride Level 99, Carbon Dioxide Level 32H, Anion Gap 9, Blood Urea Nitrogen 16 , Creatinine 1.0, Estimat Glomerular Filtration Rate , Glucose Level 140H, Calcium Level 9.8, Phosphorus Level 4.2, Magnesium Level 1.8, Troponin I < 0.30 , Vitamin B12 Level 420, Folate [Pending] Current Medications Medications (Trade) Dose Ordered Sig/Michael Route PRN Reason Start Time Stop Time Status Last Admin Dose Admin Acetaminophen (Tylenol) 650 mg Q4H PRN ORAL FEVER 07/02/17 19:15 08/01/17 19:14 Albuterol/ Ipratropium (DuoNeb 0.5-3(2.5)mg/3ml) 3 ml Q4H PRN HHN Shortness of Breath 07/02/17 19:15 07/07/17 19:14 Aspirin (ASA) 162 mg DAILY ORAL 07/03/17 09:00 08/02/17 08:59 07/04/17 09:00 Diltiazem HCl (Cardizem) 10 mg Q1H PRN IV heart rate more than 120, 07/02/17 19:15 08/01/17 19:14 Docusate Sodium (Colace) 100 mg THREE TIMES A DAY ORAL 07/03/17 13:00 08/02/17 12:59 07/04/17 09:00 Enalaprilat (Vasotec) 2.5 mg Q6H PRN IV sbp more than 160 07/02/17 19:15 08/01/17 19:14 Finasteride (Proscar) 5 mg DAILY ORAL 07/03/17 09:00 08/02/17 08:59 07/04/17 08:59 Lactulose (Cephulac) 30 gm THREE TIMES A DAY PRN ORAL CONSTIPATION 07/04/17 10:15 08/03/17 10:14 Levothyroxine Sodium (Synthroid) 50 mcg ACBREAKFAST ORAL 07/04/17 06:30 08/03/17 06:29 Metoprolol Tartrate (Lopressor) 25 mg EVERY 12 HOURS ORAL 07/03/17 21:00 08/02/17 20:59 07/03/17 21:48 Morphine Sulfate (Morphine Sulfate) 2 mg Q4H PRN IVP severe Pain (Pain Scale 7-10) 07/02/17 19:15 07/09/17 19:14 07/04/17 08:40 Nitroglycerin (Ntg) 0.4 mg Q5M PRN SL Prn Chest Pain 07/02/17 19:15 08/01/17 19:14 Ondansetron HCl (Zofran) 4 mg Q6H PRN IVP Nausea & Vomiting 07/02/17 19:15 08/01/17 19:14 07/04/17 01:54 Oxycodone/ Acetaminophen (Percocet 5-325) 1 tab Q4H PRN ORAL for moderate pain 07/03/17 07:00 07/10/17 06:59 Pantoprazole (Protonix) 40 mg DAILY ORAL 07/03/17 09:00 08/02/17 08:59 07/04/17 08:40 Polyethylene Glycol (Miralax) 17 gm BEDTIME ORAL 07/03/17 21:00 08/02/17 20:59 07/03/17 21:49 Polyethylene Glycol (Miralax) 17 gm DAILYPRN PRN ORAL Constipation 07/02/17 19:15 08/01/17 19:14 07/02/17 22:09 Tamsulosin HCl (Flomax) 0.4 mg BID ORAL 07/03/17 09:00 08/02/17 08:59 07/04/17 08:40 Temazepam (Restoril) 15 mg HSPRN PRN ORAL Insomnia 07/02/17 19:15 07/09/17 19:14 Tramadol HCl (Ultram) 50 mg Q4HR PRN ORAL for mild pain 07/03/17 07:00 07/10/17 06:59 SHELLY GONSALEZ Jul 04, 2017 12:24
[2017-07-04 16:00] VITALS: BP 118/72
[2017-07-04] MEDS: oxyCODONE 15mg IR tab ORAL PRN ×2 (16:36→23:54)
--- NOTE | 2017-07-04 19:25 | Cardiology Progress Note ---
Assessment/Plan Assessment/Plan 1. Chest pain with normal coronary arteries by cath in March of 2017. 2. Left ventricular systolic dysfunction. 3. Left bundle-branch conduction defect. 4. Status post biventricular pacemaker implantation. 5. Aortic stenosis status post transcatheter aortic valve replacement with questionable thrombus on the valve, on anticoagulation. 6. Chronic congestive heart failure. 7. Thrombocytopenia, baseline 77 to 109 as of May 2017 with continued anticoagulation antiplatelets. 8. Chronic pain syndrome. 9. Pudendal neuralgia. 10. Abdominal pain. 11. Constipation. 12. hypotension all trop neg i was notified bout hypotension lat ntie several boluses small were given but no change in bp he remain asymptomatic, diuretic and acee were dc eventually resolved now remain asymptomatic has been walking to br without any problems want to walk in [place] bp is improved will start on acei tomorrow lower dose adn observe pain management gi noted orthostatic vital and bnp in am Subjective Cardiovascular: Reports: chest pain - some today nto very bad nor log , Denies : lightheadedness, palpitations Respiratory: Denies: shortness of breath Gastrointestinal/Abdominal: Denies: abdomen distended Subjective he is happy that dr rivas has changed med for pain Objective Last 24 Hour Vital Signs Date Time Temp Pulse Resp B/P (MAP) Pulse Ox O2 Delivery O2 Flow Rate FiO2 07/04/17 16:00 97.3 78 18 118/72 96 Room Air 07/04/17 16:00 70 07/04/17 12:00 70 07/04/17 12:00 97.0 62 20 118/75 98 Room Air 07/04/17 10:41 61 20 Room Air 07/04/17 09:10 97.7 07/04/17 08:54 75 111/61 07/04/17 08:00 97.7 71 20 108/60 97 Room Air 07/04/17 08:00 84 07/04/17 04:00 60 07/04/17 04:00 97.6 82 18 131/57 98 Room Air 07/04/17 00:00 96.9 75 18 111/61 92 Room Air 07/04/17 00:00 60 07/03/17 21:48 68 122/72 07/03/17 20:00 76 07/03/17 20:00 97.0 72 18 119/74 98 Room Air 07/03/17 19:30 64 20 Room Air 21 General Appearance: no apparent distress, alert Neck: supple Cardiovascular: normal rate, regular rhythm Respiratory/Chest: lungs clear, normal breath sounds Abdomen: normal bowel sounds, non tender, soft Extremities: no swelling Intake and Output 07/04/17 07/05/17 19:00 07:00 Intake Total 480 ml Output Total 350 ml Balance 130 ml Intake Oral 480 ml Output Urine Total 350 ml Laboratory Tests Test 07/04/17 07:50 White Blood Count 6.9 K/UL (4.8-10.8) Red Blood Count 4.32 M/UL (4.70-6.10) L Hemoglobin 14.8 G/DL (14.2-18.0) Hematocrit 45.6 % (42.0-52.0) Mean Corpuscular Volume 106 FL (80-99) H Mean Corpuscular Hemoglobin 34.3 PG (27.0-31.0) H Mean Corpuscular Hemoglobin Concent 32.5 G/DL (32.0-36.0) Red Cell Distribution Width 12.9 % (11.6-14.8) Platelet Count 96 K/UL (150-450) L Mean Platelet Volume 8.4 FL (6.5-10.1) Neutrophils (%) (Auto) % (45.0-75.0) Lymphocytes (%) (Auto) % (20.0-45.0) Monocytes (%) (Auto) % (1.0-10.0) Eosinophils (%) (Auto) % (0.0-3.0) Basophils (%) (Auto) % (0.0-2.0) Differential Total Cells Counted 100 Neutrophils % (Manual) 43 % (45-75) L Lymphocytes % (Manual) 40 % (20-45) Monocytes % (Manual) 10 % (1-10) Eosinophils % (Manual) 7 % (0-3) H Basophils % (Manual) 0 % (0-2) Band Neutrophils 0 % (0-8) Platelet Estimate Decreased L Platelet Morphology Normal Macrocytosis 1+ Sodium Level 140 mEQ/L (135-145) Potassium Level 4.2 mEQ/L (3.4-4.9) Chloride Level 99 mEQ/L (98-107) Carbon Dioxide Level 32 mEQ/L (20-30) H Anion Gap 9 (5-15) Blood Urea Nitrogen 16 mg/dL (7-23) Creatinine 1.0 mg/dL (0.7-1.2) Estimat Glomerular Filtration Rate mL/min (>60) Glucose Level 140 mg/dL (74-106) H Calcium Level 9.8 mg/dL (8.6-10.2) Phosphorus Level 4.2 mg/dL (2.5-4.8) Magnesium Level 1.8 mg/dL (1.7-2.5) Troponin I < 0.30 ng/mL (<=0.30) Vitamin B12 Level 420 pg/mL (211-946) Folate Pending RAE ELLIS Jul 04, 2017 19:25
[2017-07-04 20:00] VITALS: BP 134/84
--- NOTE | 2017-07-04 20:34 | General Progress Note ---
Assessment/Plan Assessment/Plan cp cm bivicd abdominal pain chronic back pain cards fup dw Dr Lacey who will see patient pain control dw Dr Shipley PT oob ambulate dvt and ulcer prohylaxis Subjective Allergies: Coded Allergies: No Known Allergies (Unverified , 07/02/17) Subjective no chest pain or sob some abdominal discomfort no n/v pos bm Objective Last 24 Hour Vital Signs Date Time Temp Pulse Resp B/P (MAP) Pulse Ox O2 Delivery O2 Flow Rate FiO2 07/04/17 20:00 97.7 84 21 134/84 96 Room Air 07/04/17 16:00 97.3 78 18 118/72 96 Room Air 07/04/17 16:00 70 07/04/17 12:00 70 07/04/17 12:00 97.0 62 20 118/75 98 Room Air 07/04/17 10:41 61 20 Room Air 07/04/17 09:10 97.7 07/04/17 08:54 75 111/61 07/04/17 08:00 97.7 71 20 108/60 97 Room Air 07/04/17 08:00 84 07/04/17 04:00 60 07/04/17 04:00 97.6 82 18 131/57 98 Room Air 07/04/17 00:00 96.9 75 18 111/61 92 Room Air 07/04/17 00:00 60 07/03/17 21:48 68 122/72 Intake and Output 07/04/17 07/05/17 19:00 07:00 Intake Total 480 ml Output Total 350 ml Balance 130 ml Intake Oral 480 ml Output Urine Total 350 ml Laboratory Tests 07/04/17 07:50: White Blood Count 6.9, Red Blood Count 4.32L, Hemoglobin 14.8, Hematocrit 45.6, Mean Corpuscular Volume 106H, Mean Corpuscular Hemoglobin 34.3H, Mean Corpuscular Hemoglobin Concent 32.5, Red Cell Distribution Width 12.9, Platelet Count 96L, Mean Platelet Volume 8.4, Neutrophils (%) (Auto) , Lymphocytes (%) ( Auto) , Monocytes (%) (Auto) , Eosinophils (%) (Auto) , Basophils (%) (Auto) , Differential Total Cells Counted 100, Neutrophils % (Manual) 43L, Lymphocytes % (Manual) 40, Monocytes % (Manual) 10, Eosinophils % (Manual) 7H, Basophils % ( Manual) 0, Band Neutrophils 0, Platelet Estimate DecreasedL, Platelet Morphology Normal, Macrocytosis 1+, Sodium Level 140, Potassium Level 4.2, Chloride Level 99, Carbon Dioxide Level 32H, Anion Gap 9, Blood Urea Nitrogen 16 , Creatinine 1.0, Estimat Glomerular Filtration Rate , Glucose Level 140H, Calcium Level 9.8, Phosphorus Level 4.2, Magnesium Level 1.8, Troponin I < 0.30 , Vitamin B12 Level 420, Folate [Pending] Height (Feet): 5 Height (Inches): 2.00 Weight (Pounds): 167 General Appearance: WD/WN, alert Neck: supple Cardiovascular: normal rate Respiratory/Chest: lungs clear Abdomen: normal bowel sounds, soft Neurologic: 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
[2017-07-04] MEDS: Miralax 17gm pkt ORAL SCH (22:18)
[2017-07-05] VITALS: BP 130/80
[2017-07-05 04:00] VITALS: BP 119/65
[2017-07-05] MEDS: oxyCODONE 15mg IR tab ORAL PRN ×3 (04:13→15:16)
[2017-07-05 07:55] VITALS: BP 134/70
[2017-07-05 08:25] LABS: MEAN CORPUSCULAR HEMOGLOBIN 35.1 PG (27.0-31.0); MEAN CORPUSCULAR HGB CONC 33.7 G/DL (32.0-36.0); MEAN CORPUSCULAR VOLUME 104 FL (80-99); MEAN PLATELET VOLUME 9.5 FL (6.5-10.1); PLATELET COUNT 95 K/UL (150-450); RED BLOOD COUNT 3.91 M/UL (4.70-6.10); RED CELL DISTRIBUTION WIDTH 13.2 % (11.6-14.8); WHITE BLOOD COUNT 7.6 K/UL (4.8-10.8)
[2017-07-05 08:37] LABS: MAGNESIUM 1.8 mg/dL (1.7-2.5)
[2017-07-05 08:48] LABS: ANION GAP 10 (5-15); CALCIUM 9.4 mg/dL (8.6-10.2); CARBON DIOXIDE 32 mEQ/L (20-30); CHLORIDE 98 mEQ/L (98-107); HEMOLYSIS 5; POTASSIUM 4.6 mEQ/L (3.4-4.9); SODIUM 140 mEQ/L (135-145)
[2017-07-05] MEDS: Tamsulosin 0.4mg cap ORAL SCH ×2 (09:38→18:53)
[2017-07-05] MEDS: Docusate 100mg cap ORAL SCH ×3 (09:38→18:53)
[2017-07-05] MEDS: Aspirin Baby 81mg ORAL SCH (09:38)
[2017-07-05] MEDS: Metoprolol 25mg tab ORAL SCH ×2 (09:38→21:46)
[2017-07-05 09:39] LABS: BAND NEUTROPHILS % (MANUAL) 1 % (0-8); EOSINOPHILS % (MANUAL) 6 % (0-3); LYMPHOCYTES % (MANUAL) 42 % (20-45); NEUTROPHILS % (MANUAL) 42 % (45-75); TOTAL CELLS COUNTED 100
[2017-07-05 09:41] LABS: BASOPHILS % (MANUAL) 0 % (0-2); PLATELET ESTIMATE DECREASED; PLATELET MORPHOLOGY NORMAL
--- NOTE | 2017-07-05 09:57 | General Progress Note ---
Assessment/Plan Problem List: (1) Anemia ICD Codes: D64.9 - Anemia, unspecified SNOMED: 023090063 (2) Constipation ICD Codes: K59.00 - Constipation, unspecified SNOMED: 20230440 (3) CAD (coronary artery disease) ICD Codes: I25.10 - Atherosclerotic heart disease of [place] coronary artery without angina pectoris SNOMED: 93419863 (4) Pacemaker ICD Codes: Z95.0 - Presence of cardiac pacemaker SNOMED: 120963643, 947928889 (5) Chest pain ICD Codes: R07.9 - Chest pain, unspecified SNOMED: 63148112 Qualifiers: Qualified Codes: R07.9 - Chest pain, unspecified (6) Chronic abdominal pain ICD Codes: R10.9 - Unspecified abdominal pain; G89.29 - Other chronic pain SNOMED: 410944960 (7) Intractable back pain ICD Codes: M54.9 - Dorsalgia, unspecified SNOMED: 623428619 Assessment/Plan cont current meds add amitiza out patient fu Subjective ROS Limited/Unobtainable: Yes Allergies: Coded Allergies: No Known Allergies (Unverified , 07/02/17) Subjective c/o pelvic pain Objective Last 24 Hour Vital Signs Date Time Temp Pulse Resp B/P (MAP) Pulse Ox O2 Delivery O2 Flow Rate FiO2 07/05/17 09:38 77 134/70 07/05/17 07:55 97.9 77 18 134/70 96 Room Air 07/05/17 07:54 75 18 Room Air 07/05/17 04:00 71 07/05/17 04:00 70 94 75 07/05/17 04:00 98.1 70 21 119/65 96 Room Air 07/05/17 00:00 71 07/05/17 00:00 97.6 80 20 130/80 100 07/04/17 22:24 77 128/73 07/04/17 21:32 79 20 Room Air 07/04/17 20:00 97.7 84 21 134/84 96 Room Air 07/04/17 16:00 97.3 78 18 118/72 96 Room Air 07/04/17 16:00 70 07/04/17 12:00 70 07/04/17 12:00 97.0 62 20 118/75 98 Room Air 8/30/17 10:41 61 20 Room Air Laboratory Tests 07/05/17 07:45: White Blood Count 7.6, Red Blood Count 3.91L, Hemoglobin 13.7L, Hematocrit 40.7L , Mean Corpuscular Volume 104H, Mean Corpuscular Hemoglobin 35.1H, Mean Corpuscular Hemoglobin Concent 33.7, Red Cell Distribution Width 13.2, Platelet Count 95L, Mean Platelet Volume 9.5, Neutrophils (%) (Auto) , Lymphocytes (%) ( Auto) , Monocytes (%) (Auto) , Eosinophils (%) (Auto) , Basophils (%) (Auto) , Differential Total Cells Counted 100, Neutrophils % (Manual) 42L, Lymphocytes % (Manual) 42, Monocytes % (Manual) 9, Eosinophils % (Manual) 6H, Basophils % ( Manual) 0, Band Neutrophils 1, Platelet Estimate DecreasedL, Platelet Morphology Normal, Red Blood Cell Morphology Normal, Sodium Level 140, Potassium Level 4.6, Chloride Level 98, Carbon Dioxide Level 32H, Anion Gap 10, Blood Urea Nitrogen 22, Creatinine 1.0, Estimat Glomerular Filtration Rate , Glucose Level 125H, Calcium Level 9.4, Magnesium Level 1.8, Pro-B-Type Natriuretic Peptide 2495H Height (Feet): 5 Height (Inches): 2.00 Weight (Pounds): 167 General Appearance: alert EENT: normal ENT inspection Neck: supple Cardiovascular: normal rate Abdomen: soft Extremities: non-tender FIDELIA BUTLER Jul 05, 2017 09:57
[2017-07-05] MEDS ORDERED: Tums 500mg ORAL STA (11:56)
[2017-07-05 11:59] VITALS: BP 113/74
--- NOTE | 2017-07-05 12:33 | Pulmonology Progress Note ---
Assessment/Plan Problems: (1) Intractable back pain (2) Chest pain (3) Chronic abdominal pain (4) CAD (coronary artery disease) (5) Pacemaker Assessment/Plan increase methadone to TId pain specialist consult pending pt/ot GI v/u cardiology input appreciated. GI recommendations appreciated med/surg dc planning Subjective ROS Limited/Unobtainable: No Interval Events: pain better controlled, Methadone actually helped Allergies: Coded Allergies: No Known Allergies (Unverified , 07/02/17) Objective Last 24 Hour Vital Signs Date Time Temp Pulse Resp B/P (MAP) Pulse Ox O2 Delivery O2 Flow Rate FiO2 07/05/17 11:59 97.9 66 18 113/74 93 Room Air 07/05/17 09:38 77 134/70 07/05/17 07:55 97.9 77 18 134/70 96 Room Air 07/05/17 07:54 75 18 Room Air 07/05/17 04:00 71 07/05/17 04:00 70 94 75 07/05/17 04:00 98.1 70 21 119/65 96 Room Air 07/05/17 00:00 71 07/05/17 00:00 97.6 80 20 130/80 100 07/04/17 22:24 77 128/73 07/04/17 21:32 79 20 Room Air 07/04/17 20:00 97.7 84 21 134/84 96 Room Air 07/04/17 16:00 97.3 78 18 118/72 96 Room Air 07/04/17 16:00 70 General Appearance: WD/WN HEENT: normocephalic, atraumatic Respiratory/Chest: chest wall non-tender, lungs clear Cardiovascular: normal peripheral pulses, normal rate Abdomen: normal bowel sounds, soft, non tender Genitourinary: normal external genitalia Extremities: no cyanosis Skin: no rash 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 Laboratory Tests 07/05/17 07:45: White Blood Count 7.6, Red Blood Count 3.91L, Hemoglobin 13.7L, Hematocrit 40.7L , Mean Corpuscular Volume 104H, Mean Corpuscular Hemoglobin 35.1H, Mean Corpuscular Hemoglobin Concent 33.7, Red Cell Distribution Width 13.2, Platelet Count 95L, Mean Platelet Volume 9.5, Neutrophils (%) (Auto) , Lymphocytes (%) ( Auto) , Monocytes (%) (Auto) , Eosinophils (%) (Auto) , Basophils (%) (Auto) , Differential Total Cells Counted 100, Neutrophils % (Manual) 42L, Lymphocytes % (Manual) 42, Monocytes % (Manual) 9, Eosinophils % (Manual) 6H, Basophils % ( Manual) 0, Band Neutrophils 1, Platelet Estimate DecreasedL, Platelet Morphology Normal, Red Blood Cell Morphology Normal, Sodium Level 140, Potassium Level 4.6, Chloride Level 98, Carbon Dioxide Level 32H, Anion Gap 10, Blood Urea Nitrogen 22, Creatinine 1.0, Estimat Glomerular Filtration Rate , Glucose Level 125H, Calcium Level 9.4, Magnesium Level 1.8, Pro-B-Type Natriuretic Peptide 2495H Current Medications Medications (Trade) Dose Ordered Sig/Michael Route PRN Reason Start Time Stop Time Status Last Admin Dose Admin Acetaminophen (Tylenol) 650 mg Q4H PRN ORAL FEVER 07/02/17 19:15 08/01/17 19:14 Albuterol/ Ipratropium (DuoNeb 0.5-3(2.5)mg/3ml) 3 ml Q4H PRN HHN Shortness of Breath 07/02/17 19:15 07/07/17 19:14 Aspirin (ASA) 162 mg DAILY ORAL 07/03/17 09:00 08/02/17 08:59 07/05/17 09:38 Diltiazem HCl (Cardizem) 10 mg Q1H PRN IV heart rate more than 120, 07/02/17 19:15 08/01/17 19:14 Docusate Sodium (Colace) 100 mg THREE TIMES A DAY ORAL 07/03/17 13:00 08/02/17 12:59 07/05/17 09:38 Enalaprilat (Vasotec) 2.5 mg Q6H PRN IV sbp more than 160 07/02/17 19:15 08/01/17 19:14 Finasteride (Proscar) 5 mg DAILY ORAL 07/03/17 09:00 08/02/17 08:59 07/05/17 09:40 Lactulose (Cephulac) 30 gm THREE TIMES A DAY PRN ORAL CONSTIPATION 07/04/17 10:15 08/03/17 10:14 07/04/17 13:10 Levothyroxine Sodium (Synthroid) 50 mcg ACBREAKFAST ORAL 07/04/17 06:30 08/03/17 06:29 07/05/17 05:57 Lubiprostone (Amitiza) 24 mcg TWICE A DAY ORAL 07/05/17 18:00 08/04/17 17:59 Methadone HCl (Methadone HCl) 10 mg EVERY 8 HOURS ORAL 07/05/17 14:00 07/11/17 12:44 UNV Metoprolol Tartrate (Lopressor) 25 mg EVERY 12 HOURS ORAL 07/03/17 21:00 08/02/17 20:59 07/05/17 09:38 Morphine Sulfate (Morphine Sulfate) 2 mg Q4H PRN IVP severe Pain (Pain Scale 7-10) 07/02/17 19:15 07/09/17 19:14 07/04/17 08:40 Nitroglycerin (Ntg) 0.4 mg Q5M PRN SL Prn Chest Pain 07/02/17 19:15 08/01/17 19:14 Ondansetron HCl (Zofran) 4 mg Q6H PRN IVP Nausea & Vomiting 07/02/17 19:15 08/01/17 19:14 07/04/17 22:34 Oxycodone HCl (Roxicodone) 15 mg Q4H PRN ORAL severe pain 07/04/17 12:30 07/11/17 12:29 07/05/17 11:07 Pantoprazole (Protonix) 40 mg DAILY ORAL 07/03/17 09:00 08/02/17 08:59 07/05/17 09:37 Polyethylene Glycol (Miralax) 17 gm BEDTIME ORAL 07/03/17 21:00 08/02/17 20:59 07/04/17 22:18 Polyethylene Glycol (Miralax) 17 gm DAILYPRN PRN ORAL Constipation 07/02/17 19:15 08/01/17 19:14 07/02/17 22:09 Tamsulosin HCl (Flomax) 0.4 mg BID ORAL 07/03/17 09:00 08/02/17 08:59 07/05/17 09:38 Temazepam (Restoril) 15 mg HSPRN PRN ORAL Insomnia 07/02/17 19:15 07/09/17 19:14 Tramadol HCl (Ultram) 50 mg Q4HR PRN ORAL for mild pain 07/03/17 07:00 07/10/17 06:59 SHELLY GONSALEZ Jul 05, 2017 12:33
[2017-07-05 16:13] VITALS: BP 110/71
--- NOTE | 2017-07-05 16:57 | Consultation ---
History of Present Illness General Date patient seen: Jul 05, 2017 Present Illness Allergies: Coded Allergies: No Known Allergies (Unverified , 07/02/17) Medication History Scheduled Aspirin* (Aspir 81*), 81 MG ORAL QHS, (Reported) Docusate Sodium (Docusate Sodium), 100 MG ORAL QID, (Reported) Finasteride (Finasteride), 5 MG ORAL DAILY, (Reported) Gabapentin* (Gabapentin*), 100 MG ORAL QHS, (Reported) Ipratropium O'Neals (Ipratropium O'Neals), 0.03 % NS DAILY, (Reported) Lactulose (Lactulose), 10 GM PO QID, (Reported) Levothyroxine Sodium (Synthroid), 50 MCG ORAL ACBREAKFAST, (Reported) Lisinopril* (Lisinopril*), Unknown Dose ORAL DAILY, (Reported) Lisinopril* (Prinivil*), 10 MG ORAL DAILY, (Reported) Metoprolol Tartrate (Metoprolol Tartrate), 25 MG ORAL EVERY 12 HOURS, (Reported) Naloxegol Oxalate (Movantik), 25 MG PO DAILY, (Reported) Omeprazole (Omeprazole), 40 MG ORAL BEFORE LUNCH, (Reported) Simvastatin (Zocor), 40 MG ORAL BEDTIME, (Reported) Tamsulosin HCl (Flomax), 0.4 MG ORAL BID, (Reported) Scheduled PRN Oxycodone Hcl/Acetaminophen 5-325* (Oxycodone-Acetaminophen 5-325*), 1 TAB ORAL Q4H PRN for For Pain, (Reported) Tramadol Hcl* (Ultram*), 50 MG ORAL Q4HR PRN for For Pain, (Reported) Miscellaneous Medications Hydromorphone Hcl (Dilaudid), Unknown Dose PO, (Reported) Patient History Healthcare decision maker Resuscitation status Full Code Advanced Directive on File No Physical Exam Last 24 Hour Vital Signs Date Time Temp Pulse Resp B/P (MAP) Pulse Ox O2 Delivery O2 Flow Rate FiO2 07/05/17 16:13 96.4 70 18 110/71 98 Room Air 07/05/17 12:00 64 62 70 07/05/17 12:00 71 07/05/17 11:59 97.9 66 18 113/74 93 Room Air 07/05/17 09:38 77 134/70 07/05/17 08:00 69 07/05/17 07:55 97.9 77 18 134/70 96 Room Air 07/05/17 07:54 75 18 Room Air 07/05/17 04:00 71 07/05/17 04:00 70 94 75 07/05/17 04:00 98.1 70 21 119/65 96 Room Air 07/05/17 00:00 71 07/05/17 00:00 97.6 80 20 130/80 100 07/04/17 22:24 77 128/73 07/04/17 21:32 79 20 Room Air 07/04/17 20:00 97.7 84 21 134/84 96 Room Air Laboratory Tests Test 07/05/17 07:45 White Blood Count 7.6 K/UL (4.8-10.8) Red Blood Count 3.91 M/UL (4.70-6.10) L Hemoglobin 13.7 G/DL (14.2-18.0) L Hematocrit 40.7 % (42.0-52.0) L Mean Corpuscular Volume 104 FL (80-99) H Mean Corpuscular Hemoglobin 35.1 PG (27.0-31.0) H Mean Corpuscular Hemoglobin Concent 33.7 G/DL (32.0-36.0) Red Cell Distribution Width 13.2 % (11.6-14.8) Platelet Count 95 K/UL (150-450) L Mean Platelet Volume 9.5 FL (6.5-10.1) Neutrophils (%) (Auto) % (45.0-75.0) Lymphocytes (%) (Auto) % (20.0-45.0) Monocytes (%) (Auto) % (1.0-10.0) Eosinophils (%) (Auto) % (0.0-3.0) Basophils (%) (Auto) % (0.0-2.0) Differential Total Cells Counted 100 Neutrophils % (Manual) 42 % (45-75) L Lymphocytes % (Manual) 42 % (20-45) Monocytes % (Manual) 9 % (1-10) Eosinophils % (Manual) 6 % (0-3) H Basophils % (Manual) 0 % (0-2) Band Neutrophils 1 % (0-8) Platelet Estimate Decreased L Platelet Morphology Normal Red Blood Cell Morphology Normal Sodium Level 140 mEQ/L (135-145) Potassium Level 4.6 mEQ/L (3.4-4.9) Chloride Level 98 mEQ/L (98-107) Carbon Dioxide Level 32 mEQ/L (20-30) H Anion Gap 10 (5-15) Blood Urea Nitrogen 22 mg/dL (7-23) Creatinine 1.0 mg/dL (0.7-1.2) Estimat Glomerular Filtration Rate mL/min (>60) Glucose Level 125 mg/dL (74-106) H Calcium Level 9.4 mg/dL (8.6-10.2) Magnesium Level 1.8 mg/dL (1.7-2.5) Pro-B-Type Natriuretic Peptide 2495 pg/mL (0-450) H Height (Feet): 5 Height (Inches): 2.00 Weight (Pounds): 167 Medications Current Medications Medications (Trade) Dose Ordered Sig/Michael Route PRN Reason Start Time Stop Time Status Last Admin Dose Admin Acetaminophen (Tylenol) 650 mg Q4H PRN ORAL FEVER 07/02/17 19:15 08/01/17 19:14 Albuterol/ Ipratropium (DuoNeb 0.5-3(2.5)mg/3ml) 3 ml Q4H PRN HHN Shortness of Breath 07/02/17 19:15 07/07/17 19:14 Aspirin (ASA) 162 mg DAILY ORAL 07/03/17 09:00 08/02/17 08:59 07/05/17 09:38 Diltiazem HCl (Cardizem) 10 mg Q1H PRN IV heart rate more than 120, 07/02/17 19:15 08/01/17 19:14 Docusate Sodium (Colace) 100 mg THREE TIMES A DAY ORAL 07/03/17 13:00 08/02/17 12:59 07/05/17 13:27 Enalaprilat (Vasotec) 2.5 mg Q6H PRN IV sbp more than 160 07/02/17 19:15 08/01/17 19:14 Finasteride (Proscar) 5 mg DAILY ORAL 07/03/17 09:00 08/02/17 08:59 07/05/17 09:40 Lactulose (Cephulac) 30 gm THREE TIMES A DAY PRN ORAL CONSTIPATION 07/04/17 10:15 08/03/17 10:14 07/04/17 13:10 Levothyroxine Sodium (Synthroid) 50 mcg ACBREAKFAST ORAL 07/04/17 06:30 08/03/17 06:29 07/05/17 05:57 Lubiprostone (Amitiza) 24 mcg TWICE A DAY ORAL 07/05/17 18:00 08/04/17 17:59 Methadone HCl (Methadone HCl) 10 mg EVERY 8 HOURS ORAL 07/05/17 14:00 07/11/17 12:44 07/05/17 13:30 Metoprolol Tartrate (Lopressor) 25 mg EVERY 12 HOURS ORAL 07/03/17 21:00 08/02/17 20:59 07/05/17 09:38 Morphine Sulfate (Morphine Sulfate) 2 mg Q4H PRN IVP severe Pain (Pain Scale 7-10) 07/02/17 19:15 07/09/17 19:14 07/04/17 08:40 Nitroglycerin (Ntg) 0.4 mg Q5M PRN SL Prn Chest Pain 07/02/17 19:15 08/01/17 19:14 Ondansetron HCl (Zofran) 4 mg Q6H PRN IVP Nausea & Vomiting 07/02/17 19:15 08/01/17 19:14 07/04/17 22:34 Oxycodone HCl (Roxicodone) 15 mg Q4H PRN ORAL severe pain 07/04/17 12:30 07/11/17 12:29 07/05/17 15:16 Pantoprazole (Protonix) 40 mg DAILY ORAL 07/03/17 09:00 08/02/17 08:59 07/05/17 09:37 Polyethylene Glycol (Miralax) 17 gm BEDTIME ORAL 07/03/17 21:00 08/02/17 20:59 07/04/17 22:18 Polyethylene Glycol (Miralax) 17 gm DAILYPRN PRN ORAL Constipation 07/02/17 19:15 08/01/17 19:14 07/02/17 22:09 Tamsulosin HCl (Flomax) 0.4 mg BID ORAL 07/03/17 09:00 08/02/17 08:59 07/05/17 09:38 Temazepam (Restoril) 15 mg HSPRN PRN ORAL Insomnia 07/02/17 19:15 07/09/17 19:14 Tramadol HCl (Ultram) 50 mg Q4HR PRN ORAL for mild pain 07/03/17 07:00 07/10/17 06:59 Assessment/Plan Assessment/Plan (1) Lumbar DDD (2) Lumbar Spondylosis (3) Pudendal Neuropathy (4) Intractable pain Seen dictated. HEDY JONES Jul 05, 2017 16:57
--- NOTE | 2017-07-05 17:41 | Cardiology Progress Note ---
Assessment/Plan Assessment/Plan 1. Chest pain with normal coronary arteries by cath in March of 2017. 2. Left ventricular systolic dysfunction. 3. Left bundle-branch conduction defect. 4. Status post biventricular pacemaker implantation. 5. Aortic stenosis status post transcatheter aortic valve replacement with questionable thrombus on the valve, on anticoagulation. 6. Chronic congestive heart failure. 7. Thrombocytopenia, baseline 77 to 109 as of May 2017 with continued anticoagulation antiplatelets. 8. Chronic pain syndrome. 9. Pudendal neuralgia. 10. Abdominal pain. 11. Constipation. 12. hypotension all trop neg bp seem stabel will resume acei but at a lower dose pain management gi noted dc tele Subjective Cardiovascular: Denies: chest pain, lightheadedness, palpitations Respiratory: Denies: shortness of breath Gastrointestinal/Abdominal: Denies: abdomen distended Genitourinary: Denies: no symptoms Subjective Objective Last 24 Hour Vital Signs Date Time Temp Pulse Resp B/P (MAP) Pulse Ox O2 Delivery O2 Flow Rate FiO2 07/05/17 16:13 96.4 70 18 110/71 98 Room Air 07/05/17 12:00 64 62 70 07/05/17 12:00 71 07/05/17 11:59 97.9 66 18 113/74 93 Room Air 07/05/17 09:38 77 134/70 07/05/17 08:00 69 07/05/17 07:55 97.9 77 18 134/70 96 Room Air 07/05/17 07:54 75 18 Room Air 07/05/17 04:00 71 07/05/17 04:00 70 94 75 07/05/17 04:00 98.1 70 21 119/65 96 Room Air 07/05/17 00:00 71 07/05/17 00:00 97.6 80 20 130/80 100 07/04/17 22:24 77 128/73 07/04/17 21:32 79 20 Room Air 07/04/17 20:00 97.7 84 21 134/84 96 Room Air General Appearance: alert Neck: supple Cardiovascular: normal rate, regular rhythm Respiratory/Chest: lungs clear, normal breath sounds Abdomen: normal bowel sounds, non tender, soft Extremities: no swelling Laboratory Tests Test 07/05/17 07:45 White Blood Count 7.6 K/UL (4.8-10.8) Red Blood Count 3.91 M/UL (4.70-6.10) L Hemoglobin 13.7 G/DL (14.2-18.0) L Hematocrit 40.7 % (42.0-52.0) L Mean Corpuscular Volume 104 FL (80-99) H Mean Corpuscular Hemoglobin 35.1 PG (27.0-31.0) H Mean Corpuscular Hemoglobin Concent 33.7 G/DL (32.0-36.0) Red Cell Distribution Width 13.2 % (11.6-14.8) Platelet Count 95 K/UL (150-450) L Mean Platelet Volume 9.5 FL (6.5-10.1) Neutrophils (%) (Auto) % (45.0-75.0) Lymphocytes (%) (Auto) % (20.0-45.0) Monocytes (%) (Auto) % (1.0-10.0) Eosinophils (%) (Auto) % (0.0-3.0) Basophils (%) (Auto) % (0.0-2.0) Differential Total Cells Counted 100 Neutrophils % (Manual) 42 % (45-75) L Lymphocytes % (Manual) 42 % (20-45) Monocytes % (Manual) 9 % (1-10) Eosinophils % (Manual) 6 % (0-3) H Basophils % (Manual) 0 % (0-2) Band Neutrophils 1 % (0-8) Platelet Estimate Decreased L Platelet Morphology Normal Red Blood Cell Morphology Normal Sodium Level 140 mEQ/L (135-145) Potassium Level 4.6 mEQ/L (3.4-4.9) Chloride Level 98 mEQ/L (98-107) Carbon Dioxide Level 32 mEQ/L (20-30) H Anion Gap 10 (5-15) Blood Urea Nitrogen 22 mg/dL (7-23) Creatinine 1.0 mg/dL (0.7-1.2) Estimat Glomerular Filtration Rate mL/min (>60) Glucose Level 125 mg/dL (74-106) H Calcium Level 9.4 mg/dL (8.6-10.2) Magnesium Level 1.8 mg/dL (1.7-2.5) Pro-B-Type Natriuretic Peptide 2495 pg/mL (0-450) H RAE ELLIS Jul 05, 2017 17:41
[2017-07-05] MEDS ORDERED: Amitiza 24mcg cap ORAL SCH (18:00)
[2017-07-05] MEDS ORDERED: Nitroglycerin Subl 0.4mg tab (Bottle Of 25) SL PRN ×4 (19:30→20:00)
[2017-07-05 20:00] VITALS: BP 114/60
[2017-07-05] MEDS ORDERED: Enalaprilat 2.5mg/2ml Inj IV PRN (20:00)
[2017-07-05] MEDS ORDERED: Miralax 17gm pkt ORAL PRN (20:00)
[2017-07-05] MEDS ORDERED: DuoNeb 0.5-3(2.5)mg/3ml neb HHN PRN ×4 (20:00→23:15)
[2017-07-05] MEDS ORDERED: Lactulose 20gm/30ml UDC ORAL PRN (20:00)
[2017-07-05] MEDS ORDERED: Diltiazem 25mg/5ml IV PRN ×4 (20:15)
[2017-07-05] MEDS ORDERED: oxyCODONE 15mg IR tab ORAL PRN ×3 (20:30)
[2017-07-05] MEDS ORDERED: Miralax 17gm pkt ORAL SCH ×4 (21:00)
[2017-07-05] MEDS ORDERED: Metoprolol 25mg tab ORAL SCH ×3 (21:00)
--- NOTE | 2017-07-05 21:54 | General Progress Note ---
Assessment/Plan Assessment/Plan cp cm bivicd abdominal pain chronic back pain cards fup Gi consult appreciated pain control dw Dr Rivas doing better on methadone PT oob ambulate dvt and ulcer prohylaxis dc planning desi Clarke who will write hime the rx for methadone out patient fup with his pain managment physician Subjective Allergies: Coded Allergies: No Known Allergies (Unverified , 07/02/17) Subjective no chest pain or sob abdominal discmfor improved back pain better was started on methadone by dr rivas Objective Last 24 Hour Vital Signs Date Time Temp Pulse Resp B/P (MAP) Pulse Ox O2 Delivery O2 Flow Rate FiO2 07/05/17 21:46 70 114/60 07/05/17 21:39 72 18 Room Air 07/05/17 20:00 97.5 70 19 114/60 95 Room Air 07/05/17 16:13 96.4 70 18 110/71 98 Room Air 07/05/17 16:00 67 07/05/17 12:00 64 62 70 07/05/17 12:00 71 07/05/17 11:59 97.9 66 18 113/74 93 Room Air 07/05/17 09:38 77 134/70 07/05/17 08:00 69 07/05/17 07:55 97.9 77 18 134/70 96 Room Air 07/05/17 07:54 75 18 Room Air 07/05/17 04:00 71 07/05/17 04:00 70 94 75 07/05/17 04:00 98.1 70 21 119/65 96 Room Air 07/05/17 00:00 71 07/05/17 00:00 97.6 80 20 130/80 100 07/04/17 22:24 77 128/73 Laboratory Tests 07/05/17 07:45: White Blood Count 7.6, Red Blood Count 3.91L, Hemoglobin 13.7L, Hematocrit 40.7L , Mean Corpuscular Volume 104H, Mean Corpuscular Hemoglobin 35.1H, Mean Corpuscular Hemoglobin Concent 33.7, Red Cell Distribution Width 13.2, Platelet Count 95L, Mean Platelet Volume 9.5, Neutrophils (%) (Auto) , Lymphocytes (%) ( Auto) , Monocytes (%) (Auto) , Eosinophils (%) (Auto) , Basophils (%) (Auto) , Differential Total Cells Counted 100, Neutrophils % (Manual) 42L, Lymphocytes % (Manual) 42, Monocytes % (Manual) 9, Eosinophils % (Manual) 6H, Basophils % ( Manual) 0, Band Neutrophils 1, Platelet Estimate DecreasedL, Platelet Morphology Normal, Red Blood Cell Morphology Normal, Sodium Level 140, Potassium Level 4.6, Chloride Level 98, Carbon Dioxide Level 32H, Anion Gap 10, Blood Urea Nitrogen 22, Creatinine 1.0, Estimat Glomerular Filtration Rate , Glucose Level 125H, Calcium Level 9.4, Magnesium Level 1.8, Pro-B-Type Natriuretic Peptide 2495H Height (Feet): 5 Height (Inches): 2.00 Weight (Pounds): 167 General Appearance: WD/WN, no apparent distress Neck: supple Cardiovascular: normal rate Respiratory/Chest: lungs clear Abdomen: soft Neurologic: shellacker II-XII grossly normal MALLIKA REESE Jul 05, 2017 21:54
--- NOTE | 2017-07-05 23:45 | Consultation ---
DATE OF CONSULTATION: 07/05/2017 PAIN MANAGEMENT CONSULTATION CONSULTING PHYSICIAN: Eliud Tang M.D. PHYSICIAN PARENT AIDE: William Dorsey REFERRING PHYSICIAN: Tammy Shipley M.D. CHIEF COMPLAINT: Low back pain and pelvic pain. HISTORY OF PRESENT ILLNESS: The patient is an 86-year-old male, who is being seen on the telemetry floor of [facility] for initial comprehensive pain management consultation. The patient reports that he has been having low back pain and pelvic pain for many years, had pudendal neuralgia, and lumbar degenerative disk disease, and spondylosis. He described the pain as sharp, stabbing, and burning pain. He reports that he had intrathecal pain pump in the past as well as epidural injections for his lower back pain. He had pudendal nerve block, which helped with his pain. He has been on narcotics for many years, Dilaudid, oxycodone, and methadone. He is admitted under the care at this time of Dr. Gudino and Dr. Shipley, started on methadone 10 mg tablet three times a day with oxycodone 15 mg tablet every four hours as needed for severe pain. At this time, the patient's pain is tolerated and controlled well on the present medication regimen. We were consulted so that the patient would have adequate pain control while here in the hospital. PAST MEDICAL HISTORY: CHF, cardiomyopathy, aortic stenosis, BPH, urinary retention, UTI, chronic low back pain, hypertension, sleep apnea, GERD, and arthritis. PAST SURGICAL HISTORY: Lumbar laminectomy, cervical surgery, TAVR, cholecystectomy, eye surgery, intrathecal pain pump placement and removal, spinal cord stimulator, and cataract surgery. MEDICATIONS: Aspirin, docusate, finasteride, gabapentin, ipratropium, lactulose, Synthroid, lisinopril, Prinivil, metoprolol, Movantik, omeprazole, Zocor, Flomax, Percocet, Ultram, oxycodone, and Dilaudid. ALLERGIES: CIPRO and LACTULOSE. SOCIAL HISTORY: Denies smoking tobacco, drinking alcohol, or drug abuse. REVIEW OF SYSTEMS: Denies rash, fever, chills, sweating, dizziness, drowsiness, sore throat, or change in his weight. No shortness of breath or chest pain. No nausea, vomiting, diarrhea, or blood in the stool or urine. No bowel or bladder incontinence. No dysuria. He is complaining of low back pain and pelvic pain. PHYSICAL EXAMINATION: GENERAL: Alert, awake, and oriented. VITAL SIGNS: Blood pressure 110/71, heart rate is 70, oxygen saturation 98%, respiratory rate 18, and temperature is 96.4 degrees Fahrenheit. Height is 5 feet and 2 inches. Weight is 167 pounds. HEENT: PERRLA. NECK: Range of motion is decreased due to the patient's pain and condition with tenderness to paracervical muscles. No adenopathy. LUNGS: Clear. HEART: S1 and S2, pacemaker. ABDOMEN: Benign. BACK: Range of motion is decreased in flexion and extension with tenderness to paraspinal muscles, trapezius, and rhomboid muscles EXTREMITIES: Upper extremity range of motion is full in all directions. Motor is intact. No cyanosis. No clubbing. No edema. Sensory is intact. Reflexes are not obtainable. No adenopathy. Lower extremity range of motion is decreased due to the patient's pain and condition. No cyanosis. No clubbing. Sensory is intact. Reflexes are not obtainable. No adenopathy. ASSESSMENT AND PLAN: This is an 86-year-old male with lumbar degenerative disk disease, lumbar spondylosis, pudendal neuropathy, and intractable pain. The patient will be continued on methadone 10 mg tablet every eight hours around the clock hold for over sedation, oxycodone 15 mg tablet every four hours as needed for severe breakthrough pain. We will discontinue the morphine 2 mg intravenous and tramadol 50 mg tablet. The patient was discussed with Dr. Tang and Dr. Tang concurred. We will follow the patient. Thank you very much for the courtesy of this consultation. Eliud Tang M.D. MARIO Dorsey DR: Shira JOB#: [id number] CC:
[2017-07-06] MEDS ORDERED: Enalaprilat 2.5mg/2ml Inj IV PRN ×3 (01:15)
[2017-07-06 04:00] VITALS: BP 100/58
[2017-07-06 08:00] VITALS: BP 127/82
[2017-07-06] MEDS: oxyCODONE 15mg IR tab ORAL PRN ×2 (08:17→21:05)
[2017-07-06] MEDS: Docusate 100mg cap ORAL SCH ×3 (08:51→17:17)
[2017-07-06] MEDS: Tamsulosin 0.4mg cap ORAL SCH ×2 (08:51→17:17)
[2017-07-06] MEDS: Metoprolol 25mg tab ORAL SCH (08:51)
[2017-07-06] MEDS ORDERED: Docusate 100mg cap ORAL SCH ×3 (09:00)
[2017-07-06] MEDS ORDERED: Lactulose 20gm/30ml UDC ORAL PRN ×3 (09:00)
[2017-07-06] MEDS ORDERED: Aspirin Baby 81mg ORAL SCH ×4 (09:00)
[2017-07-06] MEDS ORDERED: Amitiza 24mcg cap ORAL SCH ×3 (09:00)
[2017-07-06] MEDS ORDERED: Tamsulosin 0.4mg cap ORAL SCH ×3 (09:00)
[2017-07-06] MEDS: Amitiza 24mcg cap ORAL SCH ×2 (09:00→17:17)
[2017-07-06] MEDS ORDERED: METHADONE10 MG/5 ML PO (10:33)
[2017-07-06] MEDS ORDERED: METHADONE HCL10 MG PO (10:35)
--- NOTE | 2017-07-06 10:35 | Diagnostic Imaging Report ---
Indication: Back pain Comparison: None Findings: 3 views of the lumbar spine were obtained. There is moderate to severe osteoporosis and degenerative disease involving the visualized lower thoracic and lumbar spine. This is characterized by facet hypertrophy and narrowing of intervertebral discs. Marginal spurs at the endplates also demonstrated at multiple levels. There is a mild retrolisthesis at L2-3. In addition patient has had multilevel laminectomies throughout the lumbar spine as well as hardware including prosthetic discs at L1-2 and L2-3, L5-S1, left unilateral pedicle screw at L3 and bilateral pedicle screws at L5. There are no fusion rods. There is no obvious acute fracture identified. However, if there is concern for acute injury evaluation with cross-sectional imaging CT or preferably MR is recommended. Cholecystectomy clips are present. There is an intrathecal catheter partially visualized. The catheter enters the mid lumbar spine and ascends into the thoracic spine. Extensive calcified diverticula noted within the sigmoid colon. Cholecystectomy clips are present. Moderate vascular calcification of aorta and iliac arteries noted. Impression: No obvious acute injury. If there is concern for acute injury, suggest MRI or CT. Moderate to severe spondylosis with evidence of previous surgery as discussed above. Atherosclerotic vascular disease Status post cholecystectomy
[2017-07-06] MEDS ORDERED: PANTOPRAZOLE SO20 MG ORAL (10:38)
--- NOTE | 2017-07-06 10:38 | Diagnostic Imaging Report ---
Indication: Back pain Findings: 2 views of the thoracic spine were obtained. Bones are moderately to severely osteopenic. The T10-11 disc shows vacuum phenomena with erosion of the endplates and sclerosis. Superimposed osteophytes are present moderate in degree. Osteophytes involving the vertebral endplates are seen throughout the thoracic spine. There is generalized loss of height of several thoracic vertebra. Given the findings, it is very difficult to exclude an occult fracture. If there is concern for this suggest MRI for further evaluation. There is a generalized kyphosis present. The facets are hypertrophic. Aorta is moderately calcified. There is a metallic aortic stent noted at the level of aortic valve. Pacemaker wires noted. Impression: No obvious acute injury. Plain film evaluation is particularly limited in this case. If there is concern for acute injury suggest MRI or CT. Moderate to severe degenerative changes of the thoracic spine.
[2017-07-06] MEDS ORDERED: ROXICODONE15 MG ORAL (10:41)
--- NOTE | 2017-07-06 10:43 | General Progress Note ---
Assessment/Plan Assessment/Plan (1) Lumbar DDD (2) Lumbar Spondylosis (3) Pudendal Neuropathy (4) Intractable pain Pt will be continued on Methadone and Oxycodone. Xray results pending. D/w Dr. Tang and he concurred. Subjective Date patient seen: Jul 06, 2017 Time patient seen: 09:00 - am Constitutional: Reports: no symptoms HEENT: Reports: no symptoms Cardiovascular: Reports: no symptoms Respiratory: Reports: no symptoms Gastrointestinal/Abdominal: Reports: no symptoms Genitourinary: Reports: no symptoms Neurologic/Psychiatric: Reports: no symptoms Endocrine: Reports: no symptoms Hematologic/Lymphatic: Reports: no symptoms Allergies: Coded Allergies: No Known Allergies (Unverified , 07/02/17) Subjective Patient is in no acute distress and pain has been tolerated on the Methadone and Oxycodone. He will be going for Xray. Objective Last 24 Hour Vital Signs Date Time Temp Pulse Resp B/P (MAP) Pulse Ox O2 Delivery O2 Flow Rate FiO2 07/06/17 08:51 74 127/82 07/06/17 08:00 97.5 74 18 127/82 93 Room Air 07/06/17 04:00 62 07/06/17 04:00 97.7 62 18 100/58 92 Room Air 07/05/17 21:46 70 114/60 07/05/17 21:39 72 18 Room Air 07/05/17 20:00 70 75 76 07/05/17 20:00 97.5 70 19 114/60 95 Room Air 07/05/17 16:13 96.4 70 18 110/71 98 Room Air 07/05/17 16:00 67 07/05/17 12:00 64 62 70 07/05/17 12:00 71 07/05/17 11:59 97.9 66 18 113/74 93 Room Air Height (Feet): 5 Height (Inches): 2.00 Weight (Pounds): 167 General Appearance: no apparent distress, alert EENT: PERRL/EOMI, normal ENT inspection Neck: non-tender, normal alignment Cardiovascular: normal rate, pacemaker/AICD Abdomen: non tender, soft Extremities: non-tender Edema: no edema noted Arm (L), no edema noted Arm (R), no edema noted Leg (L), no edema noted Leg (R), no edema noted Pedal (L), no edema noted Pedal (R), no edema noted Generalized Neurologic: alert, oriented x 3 Skin: warm/dry HEDY JONES Jul 06, 2017 10:43
--- NOTE | 2017-07-06 11:35 | General Progress Note ---
Assessment/Plan Problem List: (1) Anemia ICD Codes: D64.9 - Anemia, unspecified SNOMED: 622582676 (2) Constipation ICD Codes: K59.00 - Constipation, unspecified SNOMED: 51292753 (3) CAD (coronary artery disease) ICD Codes: I25.10 - Atherosclerotic heart disease of [place] coronary artery without angina pectoris SNOMED: 21391486 (4) Pacemaker ICD Codes: Z95.0 - Presence of cardiac pacemaker SNOMED: 553878088, 939591052 (5) Chest pain ICD Codes: R07.9 - Chest pain, unspecified SNOMED: 66191597 Qualifiers: Qualified Codes: R07.9 - Chest pain, unspecified (6) Chronic abdominal pain ICD Codes: R10.9 - Unspecified abdominal pain; G89.29 - Other chronic pain SNOMED: 553883628 (7) Intractable back pain ICD Codes: M54.9 - Dorsalgia, unspecified SNOMED: 861055179 Assessment/Plan cont current meds amitiza out patient fu pend discharge Subjective ROS Limited/Unobtainable: Yes Allergies: Coded Allergies: No Known Allergies (Unverified , 07/02/17) Subjective c/o pelvic pain Objective Last 24 Hour Vital Signs Date Time Temp Pulse Resp B/P (MAP) Pulse Ox O2 Delivery O2 Flow Rate FiO2 07/06/17 08:51 74 127/82 07/06/17 08:00 97.5 74 18 127/82 93 Room Air 07/06/17 04:00 62 07/06/17 04:00 97.7 62 18 100/58 92 Room Air 07/05/17 21:46 70 114/60 07/05/17 21:39 72 18 Room Air 07/05/17 20:00 70 75 76 07/05/17 20:00 97.5 70 19 114/60 95 Room Air 07/05/17 16:13 96.4 70 18 110/71 98 Room Air 07/05/17 16:00 67 07/05/17 12:00 64 62 70 07/05/17 12:00 71 07/05/17 11:59 97.9 66 18 113/74 93 Room Air Height (Feet): 5 Height (Inches): 2.00 Weight (Pounds): 167 General Appearance: alert EENT: normal ENT inspection Neck: supple Cardiovascular: normal rate Respiratory/Chest: lungs clear Abdomen: normal bowel sounds, non tender, soft Extremities: non-tender FIDELIA BUTLER Jul 06, 2017 11:34
[2017-07-06 12:00] VITALS: BP 118/61
[2017-07-06] MEDS ORDERED: Relistor 12mg/0.6ml Vial SUBQ SCH (12:30)
[2017-07-06] MEDS ORDERED: Morphine Sulfate 2mg/ml Inj IVP ONE (12:30)
[2017-07-06] MEDS ORDERED: Tums 500mg ORAL PRN (13:30)
--- NOTE | 2017-07-06 13:31 | Pulmonology Progress Note ---
Assessment/Plan Problems: (1) Intractable back pain (2) Chest pain (3) Chronic abdominal pain (4) CAD (coronary artery disease) (5) Pacemaker Assessment/Plan doing better with methadone to TId pain specialist consult pending pt/ot GI v/u cardiology input appreciated. GI recommendations appreciated med/surg dc planning Subjective ROS Limited/Unobtainable: No Constitutional: Reports: no symptoms HEENT: Repors: no symptoms Respiratory: Reports: no symptoms Allergies: Coded Allergies: No Known Allergies (Unverified , 07/02/17) Objective Last 24 Hour Vital Signs Date Time Temp Pulse Resp B/P (MAP) Pulse Ox O2 Delivery O2 Flow Rate FiO2 07/06/17 12:00 97.9 18 118/61 92 Room Air 07/06/17 08:51 74 127/82 07/06/17 08:00 97.5 74 18 127/82 93 Room Air 07/06/17 04:00 62 07/06/17 04:00 97.7 62 18 100/58 92 Room Air 07/05/17 21:46 70 114/60 07/05/17 21:39 72 18 Room Air 07/05/17 20:00 70 75 76 07/05/17 20:00 97.5 70 19 114/60 95 Room Air 07/05/17 16:13 96.4 70 18 110/71 98 Room Air 07/05/17 16:00 67 General Appearance: WD/WN, no acute distress HEENT: atraumatic Respiratory/Chest: chest wall non-tender, lungs clear Cardiovascular: normal peripheral pulses, normal rate Abdomen: normal bowel sounds, soft, non tender Genitourinary: normal external genitalia Skin: no rash, no ulcers Current Medications Medications (Trade) Dose Ordered Sig/Michael Route PRN Reason Start Time Stop Time Status Last Admin Dose Admin Acetaminophen (Tylenol) 650 mg Q4H PRN ORAL FEVER 07/05/17 20:30 08/01/17 20:29 Albuterol/ Ipratropium (DuoNeb 0.5-3(2.5)mg/3ml) 3 ml Q4H PRN HHN Shortness of Breath 07/05/17 20:00 07/07/17 19:59 Aspirin (ASA) 162 mg DAILY ORAL 07/06/17 09:00 08/02/17 08:59 07/06/17 08:51 Calcium Carbonate (Tums) 500 mg Q3H PRN ORAL INDIGESTION/DYSPEPSIA 07/06/17 13:30 08/05/17 13:29 Docusate Sodium (Colace) 100 mg THREE TIMES A DAY ORAL 07/06/17 09:00 08/02/17 12:59 07/06/17 08:51 Enalaprilat (Vasotec) 2.5 mg Q6H PRN IV sbp more than 160 07/05/17 20:00 08/04/17 19:59 Finasteride (Proscar) 5 mg DAILY ORAL 07/06/17 09:00 08/02/17 08:59 07/06/17 08:51 Lactulose (Cephulac) 30 gm TIDPRN PRN ORAL UNRELIEVED CONSTIPATION 07/05/17 20:00 08/04/17 19:59 Levothyroxine Sodium (Synthroid) 50 mcg ACBREAKFAST ORAL 07/06/17 06:30 08/03/17 06:29 07/06/17 06:18 Lubiprostone (Amitiza) 24 mcg TWICE A DAY ORAL 07/06/17 09:00 08/04/17 17:59 Methadone HCl (Methadone HCl) 10 mg EVERY 8 HOURS ORAL 07/06/17 14:00 07/11/17 12:44 Methylnaltrexone Prue (Relistor) 12 mg QOD SUBQ 07/06/17 12:30 08/05/17 12:29 Metoprolol Tartrate (Lopressor) 25 mg EVERY 12 HOURS ORAL 07/05/17 21:00 08/02/17 20:59 07/06/17 08:51 Nitroglycerin (Ntg) 0.4 mg Q5MIN PRN SL Prn Chest Pain 07/05/17 20:00 08/04/17 19:59 Ondansetron HCl (Zofran) 4 mg Q6H PRN IVP Nausea & Vomiting 07/05/17 20:00 08/04/17 19:59 07/06/17 08:10 Oxycodone HCl (Roxicodone) 15 mg Q4H PRN ORAL severe pain 07/05/17 20:30 07/11/17 12:29 07/06/17 08:17 Pantoprazole (Protonix) 40 mg DAILY ORAL 07/06/17 09:00 08/02/17 08:59 07/06/17 08:51 Polyethylene Glycol (Miralax) 17 gm BEDTIME ORAL 07/05/17 21:00 08/02/17 20:59 07/05/17 21:45 Polyethylene Glycol (Miralax) 17 gm DAILYPRN PRN ORAL Constipation 07/05/17 20:00 08/04/17 19:59 Tamsulosin HCl (Flomax) 0.4 mg BID ORAL 07/06/17 09:00 08/02/17 08:59 07/06/17 08:51 Temazepam (Restoril) 15 mg HSPRN PRN ORAL Insomnia 07/05/17 21:00 07/12/17 20:59 SHELLY GONSALEZ Jul 06, 2017 13:31
[2017-07-06 15:54] VITALS: BP 96/56
[2017-07-06] MEDS ORDERED: Miralax 17gm pkt ORAL PRN ×3 (19:15)
[2017-07-06 20:12] VITALS: BP 134/69
--- NOTE | 2017-07-11 12:59 | Discharge Summary ---
Discharge Summary Hospital Course Date of Admission Jul 02, 2017 at 17:48 Date of Discharge Jul 06, 2017 at 21:56 Admitting Diagnosis CHEST PAIN HPI Darci Herrera is a 86 year old male who was admitted on Jul 02, 2017 at 17:48 for Chest Pain Hospital Course dc summary #[id number] Discharge Medications Continued Medications: Aspirin* (Aspir 81*) 81 Mg Tablet.dr 81 MG ORAL QHS, TAB Docusate Sodium (Docusate Sodium) 100 Mg Tablet 100 MG ORAL QID, #60 TAB 0 Refills Finasteride (Finasteride) 5 Mg Tablet 5 MG ORAL DAILY, #30 TAB 0 Refills Gabapentin* (Gabapentin*) 100 Mg Capsule 100 MG ORAL QHS, CAP Ipratropium [place] (Ipratropium [place]) 15 Ml [place] 0.03 % NS DAILY, #1 SPRAY Lactulose (Lactulose) 10 Gm/15 Ml Solution 10 GM PO QID Levothyroxine Sodium (Synthroid) 50 Mcg Tablet 50 MCG ORAL ACBREAKFAST, TAB Take in the morning on an empty stomach, at least 30 minutes beforefood. Lisinopril* (Prinivil*) 10 Mg Tablet 10 MG ORAL DAILY, TAB Methadone Hcl* (Methadone*) 10 Mg Tablet 10 MG PO EVERY 8 HOURS, #10 TAB 0 Refills Metoprolol Tartrate (Metoprolol Tartrate) 25 Mg Tablet 25 MG ORAL EVERY 12 HOURS, TAB Naloxegol Oxalate (Movantik) 25 Mg Tablet 25 MG PO DAILY, TAB Omeprazole (Omeprazole) 40 Mg Capsule.dr 40 MG ORAL BEFORE LUNCH, CAP OXYCODONE HCl* (Roxicodone*) 15 Mg Tablet 15 MG ORAL Q4HR PRN for For Pain, TAB Simvastatin (Zocor) 40 Mg Tablet 40 MG ORAL BEDTIME, TAB Tamsulosin HCl (Flomax) 0.4 Mg Cap.er.24h 0.4 MG ORAL BID, CAP Discharge Condition Upon Discharge: stable Discharge Disposition Patient was discharged home Discharge Diagnoses: Discharge Instructions Discharge Instructions Special Instructions I have been assigned to complete a D/C Summary on this account. I was not involved in the patient management Sisi Rodas NP ([place]) Jul 11, 2017 12:59
== END 2017-07-06 21:56 | DRG 313 ==
LOC: EDBD 16:44 → EMR 17:44 → 2E 17:48 → EDBEDREQ 18:34 → 4W 07-05 20:07 → 4E 07-06 11:32
DX: R07.9 Chest pain, unspecified (principal); I25.10 Atherosclerotic heart disease of native coronary artery without angina pectoris; I95.9 Hypotension, unspecified; I42.9 Cardiomyopathy, unspecified; I50.22 Chronic systolic (congestive) heart failure; D69.6 Thrombocytopenia, unspecified; D64.9 Anemia, unspecified; I44.7 Left bundle-branch block, unspecified; G89.29 Other chronic pain; R10.9 Unspecified abdominal pain; K59.00 Constipation, unspecified; Z95.4 Presence of other heart-valve replacement; N40.0 Benign prostatic hyperplasia without lower urinary tract symptoms; I10 Essential (primary) hypertension; K21.9 Gastro-esophageal reflux disease without esophagitis; Z88.1 Allergy status to other antibiotic agents; Z88.8 Allergy status to other drugs, medicaments and biological substances; Z95.810 Presence of automatic (implantable) cardiac defibrillator; Z79.01 Long term (current) use of anticoagulants; G58.8 Other specified mononeuropathies; G47.30 Sleep apnea, unspecified; G89.4 Chronic pain syndrome; M51.36 Other intervertebral disc degeneration, lumbar region; M47.896 Other spondylosis, lumbar region
CPT/HCPCS: 36415; 71010; 72070; 72110; 80048; 80053; 80061; 82550; 82553; 82607; 82746; 83735; 83880; 84100; 84443; 84484; 85007; 85025; 85610; 85730; 86140; 93005; 93306; 94664; 99285; J2405

== ENCOUNTER 2017-07-20 18:47 | Inpatient (IN) | payer MEDICARE, BC ==
[~2017-07-20] VITALS: Ht 157.5 cm; Wt 72.1 kg
[~2017-07-20 18:47] MED LIST changes: +ASPIR 8181 MG ORAL; +DOCUSATE SODIU100 M2 ORAL; +FINASTERIDE5 MG ORAL; +FLOMAX0.4 MG ORAL; +GABAPENTIN100 MG ORAL; +IPRATROPIUM BRO15 ML NS; +LACTULOSE10 GM/153 PO; +LOPRESSOR25 M1 ORAL; +METHADONE HCL10 MG PO; +METHADONE10 MG/5 ML PO; +MOVANTIK25 MG PO; +OMEPRAZOLE40 M1 ORAL; +OXYCODONE-ACET1 EAC3 ORAL; +PANTOPRAZOLE SO20 MG ORAL; +PRINIVIL10 MG ORAL; +ROXICODONE15 MG ORAL; +SIMVASTATIN40 MG ORAL; +SYNTHROID50 MCG ORAL; +TRAMADOL HCL50 MG ORAL
[2017-07-20] MEDS ORDERED: HYDROmorphone 1mg/ml Carpuject IVP ONE (19:00)
[2017-07-20 19:07] VITALS: BP 149/90
[2017-07-20 20:42] LABS: MEAN CORPUSCULAR HEMOGLOBIN 35.6 PG (27.0-31.0); MEAN CORPUSCULAR HGB CONC 34.4 G/DL (32.0-36.0); MEAN CORPUSCULAR VOLUME 103 FL (80-99); MEAN PLATELET VOLUME 9.1 FL (6.5-10.1); PLATELET COUNT 73 K/UL (150-450); RED BLOOD COUNT 4.02 M/UL (4.70-6.10); RED CELL DISTRIBUTION WIDTH 12.3 % (11.6-14.8); WHITE BLOOD COUNT 6.7 K/UL (4.8-10.8)
[2017-07-20 20:45] LABS: EOSINOPHILS % (AUTO) 2.5 % (0.0-3.0); MONOCYTES % (AUTO) 9.2 % (1.0-10.0); NEUTROPHILS % (AUTO) 50.3 % (45.0-75.0)
[2017-07-20 21:00] VITALS: BP 136/77
[2017-07-20 21:01] LABS: TROPONIN I < 0.30 ng/mL (<=0.30)
[2017-07-20 21:05] LABS: ALANINE AMINOTRANSFERASE 14 U/L (3-41); ALBUMIN/GLOBULIN RATIO 1.2 (1.0-2.7); ANION GAP 13 (5-15); ASPARTATE AMINO TRANSFERASE 32 U/L (5-40); CALCIUM 9.6 mg/dL (8.6-10.2); CARBON DIOXIDE 29 mEQ/L (20-30); CHLORIDE 99 mEQ/L (98-107); CREATININE 1.2 mg/dL (0.7-1.2); HEMOLYSIS 9; LIPASE 15 U/L (< 60); SODIUM 141 mEQ/L (135-145); TOTAL PROTEIN 7.5 g/dL (6.6-8.7)
--- NOTE | 2017-07-20 22:47 | Emergency Room Report ---
History of Present Illness General Chief Complaint: Abdominal Pain Source: Patient, Medical Record, EMS Present Illness HPI 86-year-old M presents ED with abdominal pain. Patient [place]. Patient has history of chronic lower abdominal pain but states his pain medications are not helping so he called [address]. [address] Gudino. Patient states he has history of chronic pain and neurologist. Patient states he had a Dilaudid pain pump in the past. Has had multiple back surgeries. Patient states that he was seen by GI specialist yesterday and had a "breath test". States that he is supposed to be prescribed antibiotics but did not receive them yet. Pain is a 10 out of 10, sharp, nonradiating. Denies chest pain shortness of breath. No other aggravating relieving factors. Denies any other associated symptom Allergies: Coded Allergies: No Known Allergies (Unverified , 07/02/17) Patient History Past Medical History: HTN Past Surgical History: none, pacemaker Pertinent Family History: none Social History: Denies: smoking, alcohol use, drug use Immunizations: UTD Reviewed Nursing Documentation: PMH: Agreed, PSxH: Agreed Nursing Documentation-PMH Hx Cardiac Problems: Yes Hx Hypertension: Yes Hx Pacemaker: Yes - left chest pacemaker Hx Cancer: No Hx Seizures: Yes Hx Peripheral Neuropathy: Yes Review of Systems All Other Systems: negative except mentioned in HPI Physical Exam Vital Signs Date Time Temp Pulse Resp B/P (MAP) Pulse Ox O2 Delivery O2 Flow Rate FiO2 07/20/17 18:49 98.1 84 18 138/87 97 Room Air Sp02 EP Interpretation: reviewed, normal General Appearance: no apparent distress, alert, GCS 15, non-toxic Head: normocephalic, atraumatic Eyes: bilateral eye normal inspection, bilateral eye PERRL ENT: hearing grossly normal, normal pharynx, no angioedema, normal voice Neck: full range of motion, supple/symm/no masses Respiratory: chest non-tender, lungs clear, normal breath sounds, speaking full sentences Cardiovascular #1: regular rate, rhythm, no edema Cardiovascular #2: 2+ carotid (R), 2+ carotid (L), 2+ radial (R), 2+ radial (L) , 2+ dorsalis pedis (R), 2+ dorsalis pedis (L) Gastrointestinal: normal bowel sounds, soft, non-distended, no guarding, no rebound, tenderness Rectal: deferred Genitourinary: normal inspection, no CVA tenderness Musculoskeletal: back normal, gait/station normal, normal range of motion, non- tender Neurologic: alert, oriented x3, responsive, motor strength/tone normal, sensory intact, speech normal Psychiatric: judgement/insight normal, memory normal, mood/affect normal, no suicidal/homicidal ideation Reflexes: 3+ bicep (R), 3+ bicep (L), 3+ tricep (R), 3+ tricep (L), 3+ knee (R) , 3+ knee (L) Skin: normal color, no rash, warm/dry, well hydrated Lymphatic: no adenopathy Medical Decision Making Diagnostic Impression: Primary Impression: Chronic abdominal pain Additional Impression: Constipation Qualified Codes: K59.00 - Constipation, unspecified ER Course Hospital Course 86 yo M presents to ED c/o abdominal pain Differential diagnoses include: BPH, cystitis, pyelonephritis, kidney stone Clinical course 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 After initial history and physical I ordered labs, IV fluids, pain medications I spoke to PMD Dr. Gudino. Patient has years of chronic lower abdominal pain with no specific diagnosis. Was sent to GI specialist yesterday Spoke to Dr. Sharma (GI); states patient had test positive for small intestinal bacterial overgrowth. patient will require 2 different antibiotics. Insurance requires authorization which takes one week Labs - no leukocytosis, Hb/Hct stable, electrolytes ok KUB shows fecal impaction Pain is not improved. Patient is taking OxyContin at home without relief. Case discussed with Dr. Gudino and he agreed to accept the patient to his service for further care and support I feel this is a highly complex case requiring extensive working including EKG/ Rhythm strip, Xray/CT/US, Blood/urine lab work, repeat exams while in ED, and administration of strong opiates/narcotics for pain control, admission to hospital or close patient follow up. Diagnosis - chronic abdominal pain, constipation Patient admitted to floor in serious condition Labs Test 07/20/17 20:15 White Blood Count 6.7 K/UL (4.8-10.8) Red Blood Count 4.02 M/UL (4.70-6.10) Hemoglobin 14.3 G/DL (14.2-18.0) Hematocrit 41.5 % (42.0-52.0) Mean Corpuscular Volume 103 FL (80-99) Mean Corpuscular Hemoglobin 35.6 PG (27.0-31.0) Mean Corpuscular Hemoglobin Concent 34.4 G/DL (32.0-36.0) Red Cell Distribution Width 12.3 % (11.6-14.8) Platelet Count 73 K/UL (150-450) Mean Platelet Volume 9.1 FL (6.5-10.1) Neutrophils (%) (Auto) 50.3 % (45.0-75.0) Lymphocytes (%) (Auto) 37.0 % (20.0-45.0) Monocytes (%) (Auto) 9.2 % (1.0-10.0) Eosinophils (%) (Auto) 2.5 % (0.0-3.0) Basophils (%) (Auto) 1.0 % (0.0-2.0) Sodium Level 141 mEQ/L (135-145) Potassium Level 4.0 mEQ/L (3.4-4.9) Chloride Level 99 mEQ/L (98-107) Carbon Dioxide Level 29 mEQ/L (20-30) Anion Gap 13 (5-15) Blood Urea Nitrogen 20 mg/dL (7-23) Creatinine 1.2 mg/dL (0.7-1.2) Estimat Glomerular Filtration Rate mL/min (>60) Glucose Level 110 mg/dL (74-106) Calcium Level 9.6 mg/dL (8.6-10.2) Total Bilirubin 0.6 mg/dL (0.0-1.2) Aspartate Amino Transf (AST/SGOT) 32 U/L (5-40) Alanine Aminotransferase (ALT/SGPT) 14 U/L (3-41) Alkaline Phosphatase 85 U/L (40-129) Troponin I < 0.30 ng/mL (<=0.30) Total Protein 7.5 g/dL (6.6-8.7) Albumin 4.2 g/dL (3.5-5.2) Globulin 3.3 g/dL Albumin/Globulin Ratio 1.2 (1.0-2.7) Lipase 15 U/L (< 60) Other X-Ray Diagnostic Results Other X-Ray Diagnostic Results : X-Ray ordered: KUB # of Views/Limited Vs Complete: 1 View Indication: Pain EP Interpretation: Yes Interpretation: nonspecific bowel gas, other - fecal impaction Impression: Other - constiaption Electronically Signed by: Electronically signed by Rian Patrick MD Last Vital Signs Date Time Temp Pulse Resp B/P (MAP) Pulse Ox O2 Delivery O2 Flow Rate FiO2 07/20/17 21:39 98.0 07/20/17 19:07 84 18 149/90 97 Room Air Status: unchanged Disposition: ADMITTED INPATIENT Condition: Serious Referrals: NON PHYSICIAN (PCP) RIAN PATRICK M.D. Jul 20, 2017 22:47
[2017-07-20 22:50] VITALS: BP 139/89
[2017-07-21] VITALS (8 sets, daily range): BP systolic 104–135; BP diastolic 65–77
[2017-07-21] MEDS ORDERED: Fleet's Mineral Oil Enema RECTAL ONE (00:30)
[2017-07-21] MEDS ORDERED: Fleet's Mineral Oil Enema RECTAL PRN (00:45)
[2017-07-21] MEDS: HYDROmorphone 1mg/ml Carpuject IVP PRN ×2 (01:34→05:50)
[2017-07-21] MEDS: Naloxegol Oxalate 25mg tab ORAL SCH (09:10)
[2017-07-21] MEDS: Lisinopril 10mg tab ORAL SCH (09:11)
[2017-07-21] MEDS: Tamsulosin 0.4mg cap ORAL SCH ×2 (09:12→17:51)
[2017-07-21] MEDS: Docusate 100mg cap ORAL SCH ×4 (09:13→21:17)
[2017-07-21] MEDS: Metoprolol 25mg tab ORAL SCH ×2 (09:13→21:18)
[2017-07-21 09:32] LABS: MEAN CORPUSCULAR HEMOGLOBIN 33.9 PG (27.0-31.0); MEAN CORPUSCULAR HGB CONC 32.7 G/DL (32.0-36.0); MEAN CORPUSCULAR VOLUME 104 FL (80-99); MEAN PLATELET VOLUME 9.2 FL (6.5-10.1); PLATELET COUNT 73 K/UL (150-450); RED BLOOD COUNT 3.95 M/UL (4.70-6.10); RED CELL DISTRIBUTION WIDTH 12.6 % (11.6-14.8); WHITE BLOOD COUNT 5.5 K/UL (4.8-10.8)
[2017-07-21 09:57] LABS: ALANINE AMINOTRANSFERASE 12 U/L (3-41); ALBUMIN/GLOBULIN RATIO 1.2 (1.0-2.7); ANION GAP 10 (5-15); ASPARTATE AMINO TRANSFERASE 29 U/L (5-40); CARBON DIOXIDE 29 mEQ/L (20-30); CHLORIDE 102 mEQ/L (98-107); HEMOLYSIS 4; POTASSIUM 3.9 mEQ/L (3.4-4.9); SODIUM 141 mEQ/L (135-145); TOTAL PROTEIN 6.5 g/dL (6.6-8.7)
[2017-07-21] MEDS: Neomycin Sulfate 500mg Tab ORAL SCH ×2 (10:30→17:51)
[2017-07-21 11:11] LABS: BAND NEUTROPHILS % (MANUAL) 0 % (0-8); BASOPHILS % (MANUAL) 0 % (0-2); EOSINOPHILS % (MANUAL) 4 % (0-3); LYMPHOCYTES % (MANUAL) 40 % (20-45); NEUTROPHILS % (MANUAL) 51 % (45-75); PLATELET ESTIMATE DECREASED; PLATELET MORPHOLOGY NORMAL; TOTAL CELLS COUNTED 100
--- NOTE | 2017-07-21 11:34 | Diagnostic Imaging Report ---
Indication: Abdominal pain Comparison: None Single view of the abdomen obtained Some dilated bowel noted within the mid abdomen. There is gas and slight distention of the colon as well. Please correlate clinically. The bones are severely osteopenic. Suggestion of lower lumbar laminectomy and fusion as well noted. Vacuum phenomena within the T10-11 disc demonstrated. Diminished height of the visualized lower thoracic vertebra noted. Extensive soft tissue calcification is present over the buttock bilaterally presumably injection granulomata. The lumbar hardware noted. Surgical clips in right upper quadrant demonstrated. Catheter projected over the lumbar spine and in the left flank. Impression: Dilated small large bowel. Please correlate clinically. Findings could be due to ileus but obstruction not excluded. Other chronic findings as discussed above
[2017-07-21] MEDS ORDERED: Xarelto 10mg tab ORAL SCH (16:30)
[2017-07-21] MEDS ORDERED: Miralax 17gm pkt ORAL SCH (21:00)
[2017-07-21] MEDS: Aspirin EC 81mg tab ORAL SCH (21:17)
[2017-07-21] MEDS: Atorvastatin 20mg tab ORAL SCH (21:18)
[2017-07-22 04:00] VITALS: BP 120/69
[2017-07-22 07:38] LABS: MEAN CORPUSCULAR HEMOGLOBIN 33.4 PG (27.0-31.0); MEAN CORPUSCULAR HGB CONC 32.6 G/DL (32.0-36.0); MEAN CORPUSCULAR VOLUME 102 FL (80-99); MEAN PLATELET VOLUME 9.1 FL (6.5-10.1); PLATELET COUNT 72 K/UL (150-450); RED BLOOD COUNT 3.86 M/UL (4.70-6.10); RED CELL DISTRIBUTION WIDTH 12.4 % (11.6-14.8); WHITE BLOOD COUNT 5.1 K/UL (4.8-10.8)
[2017-07-22 08:00] VITALS: BP 105/57
[2017-07-22 08:19] LABS: ANION GAP 9 (5-15); CALCIUM 9.2 mg/dL (8.6-10.2); CARBON DIOXIDE 28 mEQ/L (20-30); CHLORIDE 104 mEQ/L (98-107); CREATININE 0.9 mg/dL (0.7-1.2); HEMOLYSIS 8; POTASSIUM 4.1 mEQ/L (3.4-4.9); SODIUM 141 mEQ/L (135-145)
[2017-07-22 09:09] LABS: BAND NEUTROPHILS % (MANUAL) 0 % (0-8); BASOPHILS % (MANUAL) 0 % (0-2); EOSINOPHILS % (MANUAL) 7 % (0-3); LYMPHOCYTES % (MANUAL) 27 % (20-45); NEUTROPHILS % (MANUAL) 53 % (45-75); PLATELET ESTIMATE DECREASED; PLATELET MORPHOLOGY NORMAL; TOTAL CELLS COUNTED 100
[2017-07-22 09:10] LABS: MACROCYTES 1+
[2017-07-22] MEDS: Neomycin Sulfate 500mg Tab ORAL SCH ×2 (09:23→17:06)
[2017-07-22] MEDS: Docusate 100mg cap ORAL SCH ×4 (09:23→20:51)
[2017-07-22] MEDS: Naloxegol Oxalate 25mg tab ORAL SCH (09:23)
[2017-07-22] MEDS: Tamsulosin 0.4mg cap ORAL SCH ×2 (09:23→17:04)
[2017-07-22] MEDS: Metoprolol 25mg tab ORAL SCH ×2 (09:23→20:51)
[2017-07-22] MEDS: Lisinopril 10mg tab ORAL SCH (09:23)
--- NOTE | 2017-07-22 10:06 | General Progress Note ---
Assessment/Plan Problem List: (1) Chronic abdominal pain ICD Codes: R10.9 - Unspecified abdominal pain; G89.29 - Other chronic pain SNOMED: 396709812 (2) Constipation ICD Codes: K59.00 - Constipation, unspecified SNOMED: 59704700 Qualifiers: Qualified Codes: K59.00 - Constipation, unspecified (3) Pacemaker ICD Codes: Z95.0 - Presence of cardiac pacemaker SNOMED: 939061440, 994410515 (4) CAD (coronary artery disease) ICD Codes: I25.10 - Atherosclerotic heart disease of [place] coronary artery without angina pectoris SNOMED: 57279053 (5) Anemia ICD Codes: D64.9 - Anemia, unspecified SNOMED: 539414672 Assessment/Plan given KUB findings and no BM despite of laxatives will plan CT add mineral oil increase miralax to BID cont xifaxan cint movantik consider relistor Subjective ROS Limited/Unobtainable: Yes Allergies: Coded Allergies: No Known Allergies (Unverified , 07/02/17) Subjective no BM no flatus Objective Last 24 Hour Vital Signs Date Time Temp Pulse Resp B/P (MAP) Pulse Ox O2 Delivery O2 Flow Rate FiO2 07/22/17 09:23 62 105/57 07/22/17 09:23 105/57 07/22/17 08:00 97.7 62 17 105/57 97 Room Air 07/22/17 04:00 97.6 73 18 120/69 96 Room Air 07/21/17 23:58 97.9 75 18 124/73 94 Room Air 07/21/17 21:18 74 115/68 07/21/17 20:00 97.3 74 18 115/68 100 Room Air 07/21/17 18:32 97.5 07/21/17 16:00 97.5 64 18 119/72 96 Room Air 07/21/17 12:00 97.7 70 18 133/77 92 Room Air Laboratory Tests 07/22/17 05:35: White Blood Count 5.1, Red Blood Count 3.86L, Hemoglobin 12.9L, Hematocrit 39.6L , Mean Corpuscular Volume 102H, Mean Corpuscular Hemoglobin 33.4H, Mean Corpuscular Hemoglobin Concent 32.6, Red Cell Distribution Width 12.4, Platelet Count 72L, Mean Platelet Volume 9.1, Neutrophils (%) (Auto) , Lymphocytes (%) ( Auto) , Monocytes (%) (Auto) , Eosinophils (%) (Auto) , Basophils (%) (Auto) , Differential Total Cells Counted 100, Neutrophils % (Manual) 53, Lymphocytes % ( Manual) 27, Monocytes % (Manual) 13H, Eosinophils % (Manual) 7H, Basophils % ( Manual) 0, Band Neutrophils 0, Platelet Estimate DecreasedL, Platelet Morphology Normal, Macrocytosis 1+, Sodium Level 141, Potassium Level 4.1, Chloride Level 104, Carbon Dioxide Level 28, Anion Gap 9, Blood Urea Nitrogen 18 , Creatinine 0.9, Estimat Glomerular Filtration Rate , Glucose Level 94, Calcium Level 9.2 Height (Feet): 5 Height (Inches): 2.00 Weight (Pounds): 159 General Appearance: alert EENT: normal ENT inspection Neck: supple Cardiovascular: normal rate Respiratory/Chest: lungs clear Abdomen: soft, decreased bowel sounds, tender Extremities: non-tender FIDELIA BUTLER Jul 22, 2017 10:06
[2017-07-22] MEDS ORDERED: Mineral Oil 30ml ud ORAL PRN (10:15)
[2017-07-22 12:00] VITALS: BP 119/77
[2017-07-22] MEDS: Tums 500mg ORAL PRN (14:43)
[2017-07-22 16:00] VITALS: BP 114/70
[2017-07-22] MEDS: Xarelto 15mg tab ORAL SCH ×2 (16:12→17:06)
[2017-07-22] MEDS: Miralax 17gm pkt ORAL SCH (17:05)
--- NOTE | 2017-07-22 20:07 | General Progress Note ---
Assessment/Plan Assessment/Plan abdominal pain ? ileus doubt obstruction pos constipation chronic pain on chronic opiates cm has icd sp tavr had thrombus formatin on valve thrombocytopenia check ct scan dw dr wilson pain control continue meds from home hold asa continue with xarelto monitor labs dvt and ulcerp orhylaxis Subjective Allergies: Coded Allergies: No Known Allergies (Unverified , 07/02/17) Subjective co abcdominal pain no n/v some bm with the laxatived no chest painor sob Objective Last 24 Hour Vital Signs Date Time Temp Pulse Resp B/P (MAP) Pulse Ox O2 Delivery O2 Flow Rate FiO2 07/22/17 16:00 98.1 67 19 114/70 95 Room Air 07/22/17 15:13 97.5 07/22/17 12:00 97.5 64 17 119/77 97 Room Air 07/22/17 09:23 62 105/57 07/22/17 09:23 105/57 07/22/17 08:00 97.7 62 17 105/57 97 Room Air 07/22/17 04:00 97.6 73 18 120/69 96 Room Air 07/21/17 23:58 97.9 75 18 124/73 94 Room Air 07/21/17 21:18 74 115/68 Intake and Output 07/22/17 07/23/17 19:00 07:00 Intake Total 800 ml Balance 800 ml Intake Oral 800 ml # Voids 2 # Bowel Movements 1 Laboratory Tests 07/22/17 05:35: White Blood Count 5.1, Red Blood Count 3.86L, Hemoglobin 12.9L, Hematocrit 39.6L , Mean Corpuscular Volume 102H, Mean Corpuscular Hemoglobin 33.4H, Mean Corpuscular Hemoglobin Concent 32.6, Red Cell Distribution Width 12.4, Platelet Count 72L, Mean Platelet Volume 9.1, Neutrophils (%) (Auto) , Lymphocytes (%) ( Auto) , Monocytes (%) (Auto) , Eosinophils (%) (Auto) , Basophils (%) (Auto) , Differential Total Cells Counted 100, Neutrophils % (Manual) 53, Lymphocytes % ( Manual) 27, Monocytes % (Manual) 13H, Eosinophils % (Manual) 7H, Basophils % ( Manual) 0, Band Neutrophils 0, Platelet Estimate DecreasedL, Platelet Morphology Normal, Macrocytosis 1+, Sodium Level 141, Potassium Level 4.1, Chloride Level 104, Carbon Dioxide Level 28, Anion Gap 9, Blood Urea Nitrogen 18 , Creatinine 0.9, Estimat Glomerular Filtration Rate , Glucose Level 94, Calcium Level 9.2 Height (Feet): 5 Height (Inches): 2.00 Weight (Pounds): 159 General Appearance: WD/WN, no apparent distress Neck: supple Cardiovascular: normal rate Respiratory/Chest: lungs clear Abdomen: soft MALLIKA REESE Jul 22, 2017 20:07
[2017-07-22 20:15] VITALS: BP 108/60
[2017-07-22] MEDS: Atorvastatin 20mg tab ORAL SCH (20:51)
[2017-07-22] MEDS: Aspirin EC 81mg tab ORAL SCH (20:51)
[2017-07-22 23:20] VITALS: BP 112/59
[2017-07-23 03:15] VITALS: BP 119/71
[2017-07-23 06:42] LABS: MEAN CORPUSCULAR HEMOGLOBIN 34.8 PG (27.0-31.0); MEAN CORPUSCULAR HGB CONC 33.6 G/DL (32.0-36.0); MEAN CORPUSCULAR VOLUME 104 FL (80-99); MEAN PLATELET VOLUME 9.2 FL (6.5-10.1); PLATELET COUNT 71 K/UL (150-450); RED BLOOD COUNT 3.84 M/UL (4.70-6.10); RED CELL DISTRIBUTION WIDTH 12.4 % (11.6-14.8); WHITE BLOOD COUNT 5.3 K/UL (4.8-10.8)
[2017-07-23 07:06] LABS: ANION GAP 9 (5-15); CALCIUM 10.8 mg/dL (8.6-10.2); CARBON DIOXIDE 30 mEQ/L (20-30); CHLORIDE 100 mEQ/L (98-107); HEMOLYSIS 6; POTASSIUM 4.2 mEQ/L (3.4-4.9); SODIUM 139 mEQ/L (135-145)
[2017-07-23 08:01] LABS: BAND NEUTROPHILS % (MANUAL) 0 % (0-8); BASOPHILS % (MANUAL) 0 % (0-2); EOSINOPHILS % (MANUAL) 12 % (0-3); LYMPHOCYTES % (MANUAL) 40 % (20-45); NEUTROPHILS % (MANUAL) 41 % (45-75); PLATELET ESTIMATE DECREASED; PLATELET MORPHOLOGY NORMAL; TOTAL CELLS COUNTED 100
[2017-07-23 08:03] LABS: MACROCYTES 1+; SCHISTOCYTES 1+
[2017-07-23] MEDS: Docusate 100mg cap ORAL SCH (09:00)
[2017-07-23] MEDS ORDERED: HYDROmorphone 1mg/ml Carpuject IVPB PRN (09:15)
--- NOTE | 2017-07-23 09:16 | Consultation ---
DATE OF CONSULTATION: 07/21/2017 GASTROENTEROLOGY CONSULTATION CONSULTING PHYSICIAN: Lonny Jiang M.D. CHIEF COMPLAINT: Abdominal pain. History Of Present Illness: This is an 86-year-old male with multiple medical problems, which I will dictate in a second, was seen by his GI doctor last week, had a blood test, which was positive and he was given Xifaxan. He actually is pending to get his Xifaxan. He also has chronic abdominal pain and chronic constipation, for which he was given Movantik for opiate-induced constipation. The patient states he has had a lot of abdominal pain and was told by his GI doctor to come to the hospital. PAST MEDICAL HISTORY: 1. History of chronic constipation. 2. Chronic opiate dependency for his chronic back pain. 3. History of cardiomyopathy. 4. Automatic implantable cardioverter-defibrillator placement. 5. Aortic valve replacement. 6. Hypertension. 7. Lumbar degenerative disc disease. 8. Chronic pain syndrome. ALLERGIES: No known allergies. MEDICATIONS: Please see medication reconciliation list. Social History: The patient denies any tobacco, alcohol, or drug abuse. FAMILY HISTORY: Noncontributory. Review Of Systems: A 10-point review of systems was performed and pertinent positives in HPI. PHYSICAL EXAMINATION: GENERAL: A well-developed male, in no acute distress. Vital Signs: Temperature is 97 degrees, pulse 92, respirations 20, and blood pressure is 124/53. HEENT: Normocephalic and atraumatic. Sclerae anicteric. NECK: Supple. No lymphadenopathy. Cardiovascular: Regular rate and rhythm. Plus S1 and S2. No obvious murmur. LUNGS: Clear to auscultation bilaterally. Abdomen: Positive bowel sounds. Soft and nontender. No rebound. No guarding. No peritoneal sign. EXTREMITIES: No cyanosis. No clubbing. No edema. NEUROLOGIC: Nonfocal. Laboratory Data: White count is 6.7, hemoglobin 14, hematocrit 41, MCV of 103, and platelet count is 73,000. Chem-7 grossly normal. Assessment: This is an 86-year-old male with chronic abdominal pain, chronic constipation, possibly secondary to opiates. Plan: Continue on Movantik and Colace. Add MiraLax. Monitor abdominal exam on a daily basis. Follow bowel movements on a daily basis. Consider adding more laxatives if needed. Follow labs for tomorrow. The patient is also on Xifaxan . Lonny Jiang M.D. DR: KAMARI JOB#: [id number] CC:
--- NOTE | 2017-07-23 09:16 | History and Physical Report ---
DATE OF ADMISSION: 07/20/2017 History Of Present Illness: The patient is a very pleasant 86-year-old gentleman with history of cardiomyopathy, history of CHF, history of aortic stenosis, status post TAVR in April 2017, history of chronic pain follows as an outpatient by pain management doctor, Dr. Reid Cervantes. He had recently seen Dr. Sara Sharma as an outpatient from with complaints of abdominal pain and was diagnosed with SIBO, prescriptions were given for rifaximin and neomycin, however he is not at the facility and he presented to the emergency room at [facility] with complaints of severe abdominal pain and some nausea and no vomiting. No fevers or chills. The ER physician evaluated hime, treated him in the ER, however, thought the patient needed to be admitted for further pain control and evaluation and the abdominal pain. There is no chest pain, no shortness of breath. No fevers or chills. No urinary symptoms. 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 He has previously had an intrathecal pump complicated by hyperalgesia, status post inpatient detox in July,, history of sleep apnea, and history of thyroid disease. ALLERGIES: Allergic to ciprofloxacin. He has lactose intolerance. MEDICATIONS: Please see his reconciled medication list. 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 He does not smoke. Does not drink any alcohol. Does not use any illicit drugs. Review Of Systems: A 12-point review of systems reviewed negative except for above. PHYSICAL EXAMINATION: General: He is well developed and well nourished, currently in no apparent distress. Vital Signs: Revealed a blood pressure 133/77, pulse 70, respirations 18, pulse oximetry 92% to 100% on room air, and temperature 97.7. HEENT: Head is normocephalic, atraumatic. Pupils are equal and reactive to light. Extraocular muscles are intact. Eyes are anicteric. NECK: Supple. No JVP. LUNGS: Clear. Heart: Regular rate and rhythm. He does have a defibrillator in the left side of the chest. He does have defibrillator. There is no sign of infections around the defibrillator. Abdomen: Soft, slightly distended. Some tenderness in the lower abdomen. No rebound or guarding. EXTREMITIES: No clubbing, cyanosis, or edema. NEUROLOGIC: Alert, oriented, and nonfocal. Laboratory And Imaging Studies: X-ray of the abdomen reveals dilated small and large bowel consistent with possible ileus, but obstruction not excluded. White count 6.7, hemoglobin 14.2, hematocrit 41.5, and platelet count of 73,000. Sodium 141, potassium 3.9, chloride 102, BUN 18, creatinine 1.0, and glucose 115. Troponin was negative. Assessment And Plan: The patient is a pleasant 86-year-old gentleman, presents with abdominal pain to the ER. KUB per ER physician revealed fecal impaction. Most likely, the patient was admitted. GI consultation requested, and will be started on rifaximin and neomycin. Also given lactulose, stool softeners. Continue pain medications. Await GI evaluation. The patient should be on DVT and ulcer prophylaxes. Vitaliy Gudino M.D. DR: ENA JOB#: [id number] CC:
--- NOTE | 2017-07-23 11:05 | General Progress Note ---
Assessment/Plan Assessment/Plan Assessment - chronic pelvic pain - narcotic dependence - constipation Recommendations - Continue Movantik - continue Miralax - d/c stool softener - push po - OOB - consider pain eval for methadone Subjective Allergies: Coded Allergies: No Known Allergies (Unverified , 07/02/17) Subjective Feels OK overall (+) BM recorded for CT today wants methadone says it worked well for his chronic pain management Objective Last 24 Hour Vital Signs Date Time Temp Pulse Resp B/P (MAP) Pulse Ox O2 Delivery O2 Flow Rate FiO2 07/23/17 03:15 97.5 58 18 119/71 96 Room Air 07/22/17 23:20 97.5 63 19 112/59 97 Room Air 07/22/17 20:51 76 108/60 07/22/17 20:15 97.9 76 20 108/60 97 Room Air 07/22/17 16:00 98.1 67 19 114/70 95 Room Air 07/22/17 15:13 97.5 07/22/17 12:00 97.5 64 17 119/77 97 Room Air Laboratory Tests 07/23/17 04:40: White Blood Count 5.3, Red Blood Count 3.84L, Hemoglobin 13.3L, Hematocrit 39.7L , Mean Corpuscular Volume 104H, Mean Corpuscular Hemoglobin 34.8H, Mean Corpuscular Hemoglobin Concent 33.6, Red Cell Distribution Width 12.4, Platelet Count 71L, Mean Platelet Volume 9.2, Neutrophils (%) (Auto) , Lymphocytes (%) ( Auto) , Monocytes (%) (Auto) , Eosinophils (%) (Auto) , Basophils (%) (Auto) , Differential Total Cells Counted 100, Neutrophils % (Manual) 41L, Lymphocytes % (Manual) 40, Monocytes % (Manual) 7, Eosinophils % (Manual) 12H, Basophils % ( Manual) 0, Band Neutrophils 0, Platelet Estimate DecreasedL, Platelet Morphology Normal, Macrocytosis 1+, Schistocytes 1+, Sodium Level 139, Potassium Level 4.2, Chloride Level 100, Carbon Dioxide Level 30, Anion Gap 9, Blood Urea Nitrogen 17, Creatinine 1.0, Estimat Glomerular Filtration Rate , Glucose Level 101, Calcium Level 10.8H Height (Feet): 5 Height (Inches): 2.00 Weight (Pounds): 159 Objective Thin WM NCAT supple CTA RRR soft NT ND no edema non focal YAMILETH PASTOR Jul 23, 2017 11:05
[2017-07-23 12:00] VITALS: BP 109/61
--- NOTE | 2017-07-23 12:16 | Diagnostic Imaging Report ---
Clinical Indication: Abdominal pain Technique: Patient given oral contrast. IV administration nonionic contrast. Venous phase spiral acquisition obtained through the abdomen and pelvis. Multiplanar reconstructions were generated. Total dose length product a 91 mGycm. CTDIvol(s) 19 mGy. Dose reduction achieved using automated exposure control Comparison: None Findings: What is probably a normal appendix is seen immediately apposed to the anterior abdominal wall. Colon contains a moderate amount of retained stool. There are equivocally scattered colonic diverticula. No evidence of diverticulitis. No small bowel distention or small bowel wall thickening. Contrast does traverse the entirety of the small bowel and entered the colon. No free or loculated intraperitoneal air or fluid. There is a tiny fat-containing umbilical hernia. The liver demonstrates a subcentimeter low-attenuation lesion in segment 5 which is too small to characterize. There are cholecystectomy clips. No biliary ductal dilatation. The pancreas is atrophic. The spleen, adrenals, left kidney are unremarkable. The right kidney demonstrates a 5.7 cm cyst coming off of the lower pole. No retroperitoneal or mesenteric mass or adenopathy. No pelvic mass or adenopathy. The prostate is enlarged, measures 4.9 cm transverse by 4.6 cm AP by 4.9 cm craniocaudad. There is evidence of prior spinal surgery. There is evidence of prior L4 and L5 laminectomies. Pedicle screws are seen within the bilateral L5 pedicles and within the left L3 pedicle. There is evidence of multilevel prior hardware removal. Considerable heterotopic ossification is present. There is also evidence of prior bony fusion of the posterior elements at multiple levels. An intrathecal catheter intertable of the L4 posterior elements and extends cephalad beyond the imaging volume. This is presumably orphaned, as it does not appear to be attached to a reservoir. Extensive dystrophic calcifications are seen throughout the bilateral hips, buttocks, and in the anterior abdominal wall, likely related to prior injections. The included lung bases demonstrate some posterior dependent atelectatic changes. Pacemaker wires are seen within the heart. Impression: No definite acute process Possible mild constipation Equivocal diverticulosis. No evidence of diverticulitis Evidence of extensive prior spinal surgery, as described above Orphaned intrathecal catheter is present. Evidence of prior cholecystectomy Atrophic pancreas Prostatomegaly Subcentimeter low-attenuation right lobe liver lesion, too small to characterize, most likely benign simple cyst or bile hamartoma. No further followup necessary Other findings as noted, including pacemaker, posterior dependent pulmonary atelectatic changes, extensive likely subcutaneous injection granulomata, large right lower pole renal cyst, small fat-containing umbilical hernia The CT scanner at [facility] is accredited by the [employer] and the scans are performed using protocols designed to limit radiation exposure to as low as reasonably achievable to attain images of sufficient resolution adequate for diagnostic evaluation.
[2017-07-23] MEDS: Neomycin Sulfate 500mg Tab ORAL SCH ×2 (13:21→17:56)
[2017-07-23] MEDS: Tamsulosin 0.4mg cap ORAL SCH ×2 (13:22→17:56)
[2017-07-23] MEDS: Naloxegol Oxalate 25mg tab ORAL SCH (13:23)
[2017-07-23] MEDS: HYDROMORPHONE IVPB PRN ×4 (13:30→23:24)
[2017-07-23] MEDS: Lisinopril 10mg tab ORAL SCH ×2 (13:41→13:57)
[2017-07-23] MEDS: Metoprolol 25mg tab ORAL SCH ×2 (13:44→19:59)
[2017-07-23] MEDS: Miralax 17gm pkt ORAL SCH ×3 (13:44→18:08)
[2017-07-23 16:00] VITALS: BP 117/71
[2017-07-23] MEDS: Atorvastatin 20mg tab ORAL SCH (19:58)
[2017-07-23] MEDS: Aspirin EC 81mg tab ORAL SCH (19:59)
[2017-07-23 20:00] VITALS: BP 153/73
--- NOTE | 2017-07-23 22:31 | General Progress Note ---
Assessment/Plan Assessment/Plan abdominal pain ? ileus doubt obstruction pos constipation chronic pain on chronic opiates cm has icd sp tavr had thrombus formatin on valve thrombocytopenia check ct scan dw dr wilson still pending pain control, keon snow see patient continue meds from home hold asa hold xarelto as still with low platelets monitor labs dvt and ulcerp orhylaxis Subjective Allergies: Coded Allergies: No Known Allergies (Unverified , 07/02/17) Subjective still with co abdominal pain no n/v some bm with the laxatived no chest painor sob Objective Last 24 Hour Vital Signs Date Time Temp Pulse Resp B/P (MAP) Pulse Ox O2 Delivery O2 Flow Rate FiO2 07/23/17 20:29 97.7 07/23/17 20:00 97.7 78 18 153/73 97 Room Air 07/23/17 19:59 78 153/73 07/23/17 16:00 97.3 72 18 117/71 96 Room Air 07/23/17 13:57 109/61 07/23/17 13:44 64 109/61 07/23/17 12:00 97.3 64 18 109/61 96 Room Air 07/23/17 03:15 97.5 58 18 119/71 96 Room Air 07/22/17 23:20 97.5 63 19 112/59 97 Room Air Intake and Output 07/23/17 07/24/17 19:00 07:00 Intake Total 700 ml 50 ml Balance 700 ml 50 ml Intake Oral 700 ml IV Total 50 ml # Voids 3 # Bowel Movements 2 Laboratory Tests 07/23/17 04:40: White Blood Count 5.3, Red Blood Count 3.84L, Hemoglobin 13.3L, Hematocrit 39.7L , Mean Corpuscular Volume 104H, Mean Corpuscular Hemoglobin 34.8H, Mean Corpuscular Hemoglobin Concent 33.6, Red Cell Distribution Width 12.4, Platelet Count 71L, Mean Platelet Volume 9.2, Neutrophils (%) (Auto) , Lymphocytes (%) ( Auto) , Monocytes (%) (Auto) , Eosinophils (%) (Auto) , Basophils (%) (Auto) , Differential Total Cells Counted 100, Neutrophils % (Manual) 41L, Lymphocytes % (Manual) 40, Monocytes % (Manual) 7, Eosinophils % (Manual) 12H, Basophils % ( Manual) 0, Band Neutrophils 0, Platelet Estimate DecreasedL, Platelet Morphology Normal, Macrocytosis 1+, Schistocytes 1+, Sodium Level 139, Potassium Level 4.2, Chloride Level 100, Carbon Dioxide Level 30, Anion Gap 9, Blood Urea Nitrogen 17, Creatinine 1.0, Estimat Glomerular Filtration Rate , Glucose Level 101, Calcium Level 10.8H Height (Feet): 5 Height (Inches): 2.00 Weight (Pounds): 159 General Appearance: WD/WN Cardiovascular: normal rate Respiratory/Chest: lungs clear MALLIKA REESE Jul 23, 2017 22:31
[2017-07-24] VITALS: BP 101/54
[2017-07-24 04:00] VITALS: BP 124/77
[2017-07-24] MEDS: HYDROMORPHONE IVPB PRN ×2 (04:05→06:15)
--- NOTE | 2017-07-24 08:31 | General Progress Note ---
Assessment/Plan Assessment/Plan (1) Lumbar DDD (2) Lumbar Spondylosis (3) Pudendal Neuropathy (4) Intractable pain (5) Abdominal pain Pt will be continued on Methadone and discontinue Dilaudid. We will start Oxycodone 15mg Q4H PRN severe pain. Rx for methadone 10mg Q8H 45 tabs was written for the pt in anticipation for discharge. D/w Dr. Tang and he concurred. Thank you for the courtesy of this consultation. Subjective Date patient seen: Jul 24, 2017 Time patient seen: 07:15 - am Allergies: Coded Allergies: No Known Allergies (Unverified , 07/02/17) Subjective Constitutional: Reports: no symptoms HEENT: Reports: no symptoms Cardiovascular: Reports: no symptoms Respiratory: Reports: no symptoms Gastrointestinal/Abdominal: Reports: no symptoms Genitourinary: Reports: no symptoms Neurologic/Psychiatric: Reports: no symptoms Endocrine: Reports: no symptoms Hematologic/Lymphatic: Reports: no symptoms Allergies: Coded Allergies: No Known Allergies (Unverified , 07/02/17) Subjective Patient is a known patient from prior admission and has been admitted under the care of Dr. Gudino due to abdominal pain. He has been seen by GI and continues to c/o pain in his lower back. Pt was on Dilaudid 1mg IVPB Q3H PRN and was started on Methadone 10mg Q8H ATC hold for over sedation. We were consulted so patient would have adequate pain control while here in the hospital. Objective Last 24 Hour Vital Signs Date Time Temp Pulse Resp B/P (MAP) Pulse Ox O2 Delivery O2 Flow Rate FiO2 07/24/17 06:45 97.5 07/24/17 04:00 97.5 68 18 124/77 98 Room Air 07/24/17 00:00 97.2 62 18 101/54 97 Room Air 07/23/17 20:00 97.7 78 18 153/73 97 Room Air 07/23/17 19:59 78 153/73 07/23/17 16:00 97.3 72 18 117/71 96 Room Air 07/23/17 13:57 109/61 07/23/17 13:44 64 109/61 07/23/17 12:00 97.3 64 18 109/61 96 Room Air Height (Feet): 5 Height (Inches): 2.00 Weight (Pounds): 159 Objective General Appearance: no apparent distress, alert EENT: PERRL/EOMI, normal ENT inspection Neck: non-tender, normal alignment Cardiovascular: normal rate, pacemaker/AICD Abdomen: non tender, soft Extremities: non-tender Edema: no edema noted Arm (L), no edema noted Arm (R), no edema noted Leg (L), no edema noted Leg (R), no edema noted Pedal (L), no edema noted Pedal (R), no edema noted Generalized Neurologic: alert, oriented x 3 Skin: warm/dry HEDY JONES Jul 24, 2017 08:31
[2017-07-24] MEDS: Miralax 17gm pkt ORAL SCH ×2 (09:00→18:00)
[2017-07-24] MEDS: Naloxegol Oxalate 25mg tab ORAL SCH (09:00)
[2017-07-24] MEDS: Lisinopril 10mg tab ORAL SCH (09:00)
[2017-07-24 09:54] VITALS: BP 111/63
[2017-07-24] MEDS: Tamsulosin 0.4mg cap ORAL SCH ×2 (09:57→18:08)
[2017-07-24] MEDS: Metoprolol 25mg tab ORAL SCH (09:58)
[2017-07-24] MEDS: Neomycin Sulfate 500mg Tab ORAL SCH ×2 (10:00→18:08)
[2017-07-24] MEDS ORDERED: oxyCODONE 15mg IR tab ORAL PRN (10:00)
[2017-07-24] MEDS ORDERED: Relistor 12mg/0.6ml Vial SUBQ SCH (11:00)
[2017-07-24 13:10] VITALS: BP 113/65
[2017-07-24] MEDS: Tums 500mg ORAL PRN (15:29)
[2017-07-24 16:56] VITALS: BP 123/77
[2017-07-24] MEDS ORDERED: Tubing IV Secondary IV ONE (17:52)
[2017-07-24] MEDS ORDERED: NS 275ml ONE (17:52)
--- NOTE | 2017-07-24 21:00 | General Progress Note ---
Assessment/Plan Assessment/Plan Assessment - chronic pelvic pain - narcotic dependence - constipation Recommendations - Continue Movantik - continue Miralax - push po - OOB - f/u Dr Sharma Subjective Allergies: Coded Allergies: No Known Allergies (Unverified , 07/02/17) Subjective Feels OK overall (+) BM recorded for discharge today advised to f/u with Dr. Sharma Objective Last 24 Hour Vital Signs Date Time Temp Pulse Resp B/P (MAP) Pulse Ox O2 Delivery O2 Flow Rate FiO2 07/24/17 16:56 97.5 67 18 123/77 98 Room Air 07/24/17 13:10 97.3 61 18 113/65 97 07/24/17 09:58 68 111/63 07/24/17 09:54 97.5 68 18 111/63 97 07/24/17 09:00 113/65 07/24/17 06:45 97.5 07/24/17 04:00 97.5 68 18 124/77 98 Room Air 07/24/17 00:00 97.2 62 18 101/54 97 Room Air Intake and Output 07/24/17 07/25/17 19:00 07:00 # Bowel Movements 1 Height (Feet): 5 Height (Inches): 2.00 Weight (Pounds): 159 Objective Thin WM NCAT supple CTA RRR soft NT ND no edema non focal YAMILETH PASTOR Jul 24, 2017 21:00
--- NOTE | 2017-07-26 10:10 | Discharge Summary ---
Discharge Summary Hospital Course Date of Admission Jul 20, 2017 at 21:58 Date of Discharge Jul 24, 2017 at 18:46 Admitting Diagnosis intractable abd pain HPI Darci Herrera is a 86 year old male who was admitted on Jul 20, 2017 at 21:58 for Intractable Abdominal Hospital Course [id number] Discharge Discharge Disposition Patient was discharged to assisted living Discharge Diagnoses: Amelie Mayorga NP Jul 26, 2017 10:10
--- NOTE | 2017-07-27 05:30 | Discharge Summary 2 SIG ---
DATE OF ADMISSION: 07/20/2017 DATE OF DISCHARGE: 07/24/2017 CONSULTANTS: 1. Lonny Jiang M.D. 2. Eliud Tang M.D. Brief Hospital Course: The patient is a pleasant 86-year-old gentleman with history of cardiomyopathy, CHF, aortic stenosis, status post TAVR in 04/2017, history of chronic pain being followed by outpatient pain management doctor and recently has been seen by Dr. Sharma for GI complaints of abdominal pain and was diagnosed with a small intestinal bowel obstruction. Prescriptions were given for rifaximin and neomycin. However, symptoms continued complaining of severe abdominal pain with some nausea. No vomiting. He presented to ED. On evaluation, laboratories showed no leukocytosis. Hemoglobin and hematocrit were stable. KUB done showed fecal impaction. Due to positive small intestinal bacterial overgrowth, the patient would be needing IV antibiotics. He was then admitted to medical floor and was continued on rifaximin and neomycin. He also was given Movantik for opioid-induced constipation and was given Colace and MiraLax. Abdominal and pelvic CT showed no acute process with diverticulosis without diverticulitis. The patient was given pain management. He was continued on methadone and was initially given Dilaudid. Dilaudid was eventually discontinued and was given oxycodone p.r.n. pain. Platelets were low. Xarelto was placed on hold. He was having bowel movements. The patient was eventually discharged home. FINAL DIAGNOSES: 1. Abdominal pain possible ileus obstruction. 2. Constipation. 3. Chronic pain on chronic opiates. 4. Cardiomyopathy, status post implantable cardioverter-defibrillator. 5. Aortic stenosis, status post transcatheter aortic valve replacement. 6. 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 7. Thrombocytopenia. DISPOSITION: The patient was discharged back to independent living. DISCHARGE MEDICATIONS: Refer to medication list. FOLLOWUP: Follow up with PMD in a week. Vitaliy Gudino M.D. I have been assigned to dictate discharge summary on this account and I was not involved in the patient's management. Amelie Mayorga N.P. DR: ROBIN JOB#: [id number] CC:
== END 2017-07-24 18:46 | disposition home or self-care (01) | DRG 389 ==
LOC: EDBD 18:47 → EDUNIT# 18:47 → EMR 19:20 → 4W 21:58 → EDBEDREQ 22:20
DX: K56.7 Ileus, unspecified (principal); I42.9 Cardiomyopathy, unspecified; D69.6 Thrombocytopenia, unspecified; F11.20 Opioid dependence, uncomplicated; I50.9 Heart failure, unspecified; R10.9 Unspecified abdominal pain; Z79.01 Long term (current) use of anticoagulants; Z95.4 Presence of other heart-valve replacement; Z88.1 Allergy status to other antibiotic agents; I10 Essential (primary) hypertension; M51.36 Other intervertebral disc degeneration, lumbar region; G89.4 Chronic pain syndrome; D64.9 Anemia, unspecified; Z95.810 Presence of automatic (implantable) cardiac defibrillator; M47.896 Other spondylosis, lumbar region; G62.9 Polyneuropathy, unspecified; K57.90 Diverticulosis of intestine, part unspecified, without perforation or abscess without bleeding; K59.03 Drug induced constipation; T40.2X5A Adverse effect of other opioids, initial encounter; I25.10 Atherosclerotic heart disease of native coronary artery without angina pectoris
CPT/HCPCS: 36415; 74000; 74177; 80048; 80053; 83690; 84484; 85007; 85025; 87081; 99285; J2405